=== PATIENT | female | born 1955 | race Caucasian/White ===

== ENCOUNTER 2019-05-10 12:45 | Outpatient (CLI) | payer BC, SELFPAY ==
--- NOTE | ~2019-05-10 | MR_ITS ---
EXAMINATION: MR lumbar spine [facility] EXAM DATE: 05/10/2019 13:38 INDICATION: Lumbar pain. Low back pain. TECHNIQUE: Multi-sequential, multiplanar MR images of the lumbar spine were obtained without contrast . Sagittal T1, T2, T2 fat saturation images. Axial T2 weighted images. There is no prior study for comparison. FINDINGS: There is 7 mm anterolisthesis L4 on L5 with mild to moderate loss of this disc height, but no spondylolysis suspected. The vertebral bodies are otherwise aligned. Mild disc disease at the othe r lumbar levels. The conus medullaris terminates at the T12-L1 level and has normal signal intensity and morphology. Paraspinal soft tissue is unremarkable. Level by level evaluation: T12-L1: Disc does not extend beyond the endplate margin. Facet arthropathy: Mild. Neural foraminal stenosis: No stenosis. Central canal stenosis: No stenosis. L1-L2: There is a minimal diffuse disc bulge. Facet arthropathy: Mild. Neural foraminal stenosis: No stenosis. Central canal stenosis: No stenosis. L2-L3: There is a mild diffuse disc bulge. Facet arthropathy: Mild. Neural foraminal stenosis: Mild to moderate left, mild right. Central canal stenosis: Mild. L3-L4: There is a mild to moderate diffuse disc bulge. Facet arthropathy: Mild to moderate. Neural foraminal stenosis: Mild to moderate bilateral. Central canal stenosis: Mild to moderate. L4-L5: There is a moderate diffuse disc bulge. Facet arthropathy: Severe . Ligamentum flavum enlargement. Neural foraminal stenosis: Moderate bilateral, left greater than right. Central canal stenosis: Severe. L5-S1: There is a mild diffuse disc bulge. Facet arthropathy: Mild to moderate right, mild left. Neural foraminal stenosis: Mild to moderate bilateral. Central canal stenosis: Mild to moderate. IMPRESSION: 1. L5-S1 grade 2 anterolisthesis, severe central canal stenosis. 2. Otherwise mild to moderate lumbar spondylosis as above. Reviewed, dictated and finalized at location A. YPERSON
== END 2019-05-10 12:46 | disposition home or self-care (01) ==
PROVIDERS: Visit Provider Family Medicine
DX: M25.78 Osteophyte, vertebrae (principal); M51.36 Other intervertebral disc degeneration, lumbar region; M47.896 Other spondylosis, lumbar region
CPT/HCPCS: 72148

== ENCOUNTER 2019-06-09 09:41 | Outpatient (CLI) | payer BC, SELFPAY ==
--- NOTE | ~2019-06-09 | DEXA_ITS ---
Bone Density Report Name: Erin Will Age: 63 Sex: Female Ethnicity: White Date of : 1955 Indication: postmenopausal; Referring Provider: Ashly Zaragoza Study: Bone densitometry was performed. Exam Date: June 09, 2019 Accession number: [id number] Bone Density: Region BMD T-score Z-score Classification AP Spine (L1-L4) 0.851 -1.8 -0.2 Osteopenia Femoral Neck (Left) 0.695 -1.4 0.0 Osteopenia Total Hip (Left) 0.891 -0.4 0.7 Normal Total Hip Bilateral Avg 0.873 -0.6 0.6 Normal Femoral Neck (Right) 0.672 -1.6 -0.2 Osteopenia Total Hip (Right) 0.855 -0.7 0.4 Normal World Health Organization criteria for BMD impression classify patients as: Normal (T-score at or above -1.0), Osteopenia (T-score between -1.0 and -2.5), or Osteoporosis (T-score at or below -2.5). 10-year Fracture Risk(1): Major Osteoporotic Fracture 8.3% Hip Fracture 0.8% Reported Risk Factors: [place] (), Neck BMD=0.672, BMI=31.5 (1) FRAX(R) Version 3.08. Fracture probability calculated for an untreated patient. Fracture probability may be lower if the patient has received treatment. Clinical Information Provided by Patient: Has used the following medications: Vitamin D Patient maximum height was 62 Menopause Age: 49 No regular weight bearing exercise Drinks caffeinated beverages Onset of menses at age 17 Number of children 3 Impression: The patient has low bone mass, based on the Total Spine T-score. The patient has an estimated ten-year risk of hip fracture of 0.8% and an estimated ten-year risk of major fracture of 8.3%, based on the WHO FRAX algorithm. Discussion: BONE DENSITY IS LOW AT ONE OR MORE SKELETAL SITES. This patient's lowest T-score is low at one or more skeletal sites. It meets the World Health Organization's (WHO) criteria for ?low bone mass? (T-score between -1.0 and -2.5). The patient's 10-year risk of fracture as calculated by FRAX is less than the threshold where pharmacological therapy is recommended by the National Osteoporosis Foundation (NOF). However, all treatment decisions require clinical judgment and consideration of individual patient factors, including patient preferences, comorbidities, previous drug use, risk factors not captured in the FRAX model (e.g., frailty, falls, vitamin D deficiency, increased bone turnover, interval significant decline in bone density) and possible under or overestimation of fracture risk by FRAX. The patient should follow a healthful lifestyle (good nutrition with adequate calcium and vitamin D, and appropriate weight-bearing exercise). Follow-Up: Consider repeating this study in 2 to 3 years to reassess this patient's status, or sooner if there is some new clinical indication. Reported by: [facility] on 06/09/2019 10:20:00 AM.
--- NOTE | ~2019-06-09 | MM_ITS ---
EXAMINATION: MM screening [facility] BI w angelina HISTORY: Screening mammogram TECHNIQUE: Craniocaudal and mediolateral oblique 3-D tomosynthesis images were obtained and synthetic 2-D images were generated. CAD analysis was submitted and interpreted. COMPARISON: 04/09/2016, 09/05/2014, 08/12/2013 BREAST PARENCHYMAL COMPOSITION: The breasts are heterogeneously dense, which may obscure small masses . FINDINGS: There is no evidence of suspicious mass, calcification, or architectural distortion to sugg est malignancy in either breast. There has been no suspicious interval change. IMPRESSION: 1. No mammographic evidence of malignancy. 2. Recommend routine screening mammography in one year. BI-RADS Category 1: Negative Reviewed, dictated and finalized at location A.
== END 2019-06-09 09:42 | disposition home or self-care (01) ==
PROVIDERS: Referring Provider Obstetrics & Gynecology; Visit Provider Family Medicine
DX: Z12.31 Encounter for screening mammogram for malignant neoplasm of breast (principal); Z78.0 Asymptomatic menopausal state; M85.88 Other specified disorders of bone density and structure, other site; M85.852 Other specified disorders of bone density and structure, left thigh; M85.851 Other specified disorders of bone density and structure, right thigh
CPT/HCPCS: 77063; 77067; 77080

== ENCOUNTER 2020-08-15 10:00 | Outpatient (CLI) | payer BC, SELFPAY ==
[2020-08-15 11:12] LABS: Thyroid Stimulating Hormone 0.017 uIU/mL (0.465-4.680)
[2020-08-15 11:27] LABS: Free T4 Free Thyroxine 1.24 ng/mL (0.78-2.19)
[2020-08-18 07:26] LABS: Triiodothyronine T3 Free 3.6 pg/mL (2.3-4.2)
== END 2020-08-15 10:01 | disposition home or self-care (01) ==
PROVIDERS: PCP Physician Assistant; Visit Provider Physician Assistant
DX: E05.90 Thyrotoxicosis, unspecified without thyrotoxic crisis or storm (principal); R79.89 Other specified abnormal findings of blood chemistry
CPT/HCPCS: 36415; 84439; 84443; 84481

== ENCOUNTER 2020-08-27 13:19 | Outpatient (CLI) | payer BC, SELFPAY ==
[2020-08-31 14:53] LABS: Thyroid Stimulating Immunoglob 180 % baseline (<140)
[2020-09-01 05:07] LABS: Thyroid Peroxidase Antibodies <1 IU/mL (<9)
[2020-09-01 20:45] LABS: Thyrotropin Receptor Antibody 6.44 IU/L (<=2.00)
[2020-09-03 04:44] LABS: Thyroxin Binding Globulin 25.4 mcg/mL (13.5-30.9)
== END 2020-08-27 13:20 | disposition home or self-care (01) ==
LOC: ANHLAB 13:20
PROVIDERS: PCP Physician Assistant; Visit Provider Physician Assistant
DX: R79.89 Other specified abnormal findings of blood chemistry (principal)
CPT/HCPCS: 36415; 83519; 84442; 84445; 86376

== ENCOUNTER → 2020-11-10 09:45 | Outpatient (CLI) | payer BC, SELFPAY ==
--- NOTE | ~2020-11-10 | MM_ITS ---
EXAMINATION: MM screening [facility] w angelina HISTORY: Screening mammogram TECHNIQUE: Craniocaudal and mediolateral oblique 3-D tomosynthesis images were obtained and synthetic 2-D images were generated. Bilateral rotated lateral cc views. CAD analysis was submitted and interp reted. COMPARISON: 06/09/2019, , 09/05/2014 bilateral digital screening mammogram examinations BREAST PARENCHYMAL COMPOSITION: The breasts are heterogeneously dense, which may obscure small masses . FINDINGS: There is no evidence of suspicious mass, calcification, or architectural distortion to sugg est malignancy in either breast. There has been no suspicious interval change. IMPRESSION: 1. No mammographic evidence of malignancy. 2. Recommend routine screening mammography in one year. BI-RADS Category 1: Negative Reviewed, dictated and finalized at location A.
== END ==
PROVIDERS: PCP Physician Assistant; Visit Provider Obstetrics & Gynecology
DX: Z12.31 Encounter for screening mammogram for malignant neoplasm of breast (principal)
CPT/HCPCS: 77063; 77067

== ENCOUNTER 2020-12-24 09:35 | Outpatient (CLI) | payer BC, SELFPAY ==
[2020-12-24 10:28] LABS: Basophils Percent Auto 0.8 % (0.2-1.2); Eosinophils Absolute Auto 0.1 K/mm3 (0-0.3); Eosinophils Percent Auto 2.3 % (0-4.4); Hematocrit 42.4 % (37.0-47.0); Hemoglobin 14.4 g/dL (12.0-15.0); Immature Granulocyte Absolute 0.01 K/mm3 (0.00-0.031); Immature Granulocyte Percent A 0.2 % (0-0.5); Lymphocytes Absolute Auto 1.87 K/mm3 (0.9-3.2); Lymphocytes Percent Auto 39.2 % (18.3-44.2); Mean Corpuscular Hemoglobin 30.3 pg (26-34); Mean Corpuscular Volume 89.3 fl (80-100); Mean Platelet Volume 9.3 fl (7.4-10.4); Monocytes Absolute Auto 0.6 K/mm3 (0.1-0.6); Monocytes Percent Auto 11.9 % (2.6-8.5); Neutrophils Absolute Auto 2.2 K/mm3 (1.3-6.7); Neutrophils Percent Auto 45.6 % (45.5-73.1); Platelet Count Result 277 k/mm3 (150-375); Red Blood Count 4.75 M/mm3 (4.2-5.4); Red Cell Distribution Width 12.8 % (11.5-14.5); White Blood Count 4.8 K/mm3 (4.5-10.0)
[2020-12-24 10:43] LABS: Alanine Aminotransferase 22 U/L (4-35); Albumin Level 4.4 g/dL (3.5-5.1); Alkaline Phosphatase 118 U/L (38-126); Anion Gap 7 mmol/L (8-16); Aspartate Amino Transferase 28 U/L (14-36); Bilirubin,Total 0.6 mg/dL (0.2-1.3); Blood Urea Nitrogen 13 mg/dL (7-17); Calcium 10.3 mg/dL (8.4-10.2); Carbon Dioxide 30 mmol/L (22-30); Chloride 104 mmol/L (98-107); Estimated Glomerular Filt Rate 56; Glucose 99 mg/dL (65-110); Potassium 3.9 mmol/L (3.4-5.0); Sodium 141 mmol/L (137-145)
[2020-12-24 11:11] LABS: Thyroid Stimulating Hormone < 0.015 uIU/mL (0.465-4.680)
[2020-12-24 11:18] LABS: Free T4 Free Thyroxine 1.45 ng/mL (0.78-2.19)
[2020-12-24 12:05] LABS: Folic Acid > 20.0 ng/mL (2.76->20)
[2020-12-27 04:39] LABS: Triiodothyronine T3 Free 3.6 pg/mL (2.3-4.2)
[2020-12-28 04:13] LABS: Thyroid Peroxidase Antibodies <1 IU/mL (<9)
[2021-01-01 14:28] LABS: Thyroid Stimulating Immunoglob <89 % baseline (<140)
== END 2020-12-24 09:36 | disposition home or self-care (01) ==
LOC: ANHLAB 09:37
PROVIDERS: PCP Physician Assistant; Visit Provider Internal Medicine Endocrinology, Diabetes & Metabolism
DX: R94.6 Abnormal results of thyroid function studies (principal)
CPT/HCPCS: 36415; 80053; 82607; 82746; 84439; 84443; 84445; 84481; 85025; 86376

== ENCOUNTER 2021-07-23 13:01 | Outpatient (CLI) | payer BC, SELFPAY ==
[2021-07-23 13:55] LABS: Alanine Aminotransferase 19 U/L (6-35); Alkaline Phosphatase 112 U/L (38-126); Anion Gap 5 mmol/L (8-16); Aspartate Amino Transferase 25 U/L (14-36); Bilirubin,Total 0.3 mg/dL (0.2-1.3); Blood Urea Nitrogen 19 mg/dL (7-17); Calcium 8.7 mg/dL (8.4-10.2); Carbon Dioxide 24 mmol/L (22-30); Chloride 105 mmol/L (98-107); Cholesterol 214 mg/dL (0-200); Estimated Glomerular Filt Rate 56; Glucose 97 mg/dL (65-110); HDL Direct 49 mg/dL; Potassium 3.8 mmol/L (3.4-5.0); Sodium 134 mmol/L (137-145); Triglycerides 341 mg/dL (<150)
[2021-07-23 14:02] LABS: Hemoglobin A1C 5.4 % (<5.7)
[2021-07-23 14:05] LABS: LDL Cholesterol Direct 109 mg/dL
[2021-07-23 14:23] LABS: Thyroid Stimulating Hormone < 0.015 uIU/mL (0.465-4.680)
[2021-07-23 14:38] LABS: Free T4 Free Thyroxine 1.52 ng/mL (0.78-2.19)
[2021-07-25 05:19] LABS: Triiodothyronine T3 Free 3.9 pg/mL (2.3-4.2)
[2021-07-25 13:42] LABS: Thyroid Stimulating Immunoglob 102 % baseline (<140)
[2021-07-25 21:30] LABS: Insulin Level Total 15.1 uIU/mL (<=19.6); Thyroid Peroxidase Antibodies <1 IU/mL (<9)
== END 2021-07-23 13:02 | disposition home or self-care (01) ==
LOC: ANHLAB 13:04
PROVIDERS: PCP Family Medicine; Visit Provider Internal Medicine Endocrinology, Diabetes & Metabolism
DX: R94.6 Abnormal results of thyroid function studies (principal); R73.01 Impaired fasting glucose
CPT/HCPCS: 36415; 80053; 80061; 83036; 83525; 84439; 84443; 84445; 84481; 86376

== ENCOUNTER → 2021-12-02 14:34 | Outpatient (CLI) | payer BC, SELFPAY ==
--- NOTE | ~2021-12-02 | MM_ITS ---
EXAMINATION: MM screening [facility] w angelina HISTORY: Screening mammogram TECHNIQUE: Craniocaudal and mediolateral oblique 3-D tomosynthesis images were obtained and synthetic 2-D images were generated. Bilateral rotated lateral CC views. CAD analysis was submitted and interp reted. COMPARISON: 11/2020, 06/09/2019, lateral screening mammogram examinations BREAST PARENCHYMAL COMPOSITION: The breasts are heterogeneously dense, which may obscure small masses . FINDINGS: There is no evidence of suspicious mass, calcification, or architectural distortion to sugg est malignancy in either breast. There has been no suspicious interval change. IMPRESSION: 1. No mammographic evidence of malignancy. 2. Recommend routine screening mammography in one year. BI-RADS Category 1: Negative Reviewed, dictated and finalized at location A.
== END ==
PROVIDERS: PCP Family Medicine; Visit Provider Obstetrics & Gynecology Gynecology
DX: Z12.31 Encounter for screening mammogram for malignant neoplasm of breast (principal)
CPT/HCPCS: 77063; 77067

== ENCOUNTER 2021-12-04 09:43 | Outpatient (CLI) | payer BC, SELFPAY ==
[2021-12-04 10:03] LABS: Hematocrit 43.9 % (37.0-47.0); Hemoglobin 14.3 g/dL (12.0-15.0); Mean Corpuscular HGB Conc 32.6 g/dl (32-36); Mean Corpuscular Volume 92.2 fl (80-100); Mean Platelet Volume 9.9 fl (7.4-10.4); Platelet Count Result 265 k/mm3 (150-375); Red Blood Count 4.76 M/mm3 (4.2-5.4); Red Cell Distribution Width 13.8 % (11.5-14.5); White Blood Count 6.4 K/mm3 (4.5-10.0)
[2021-12-04 10:15] LABS: Alanine Aminotransferase 24 U/L (6-35); Albumin Level 4.3 g/dL (3.5-5.1); Alkaline Phosphatase 120 U/L (38-126); Anion Gap 9 mmol/L (8-16); Aspartate Amino Transferase 26 U/L (14-36); Bilirubin,Total 0.4 mg/dL (0.2-1.3); Blood Urea Nitrogen 16 mg/dL (7-17); Calcium 9.9 mg/dL (8.4-10.2); Carbon Dioxide 27 mmol/L (22-30); Chloride 103 mmol/L (98-107); Cholesterol 232 mg/dL (0-200); Estimated Glomerular Filt Rate 56; Glucose 101 mg/dL (65-110); HDL Direct 44 mg/dL; Potassium 4.1 mmol/L (3.4-5.0); Sodium 139 mmol/L (137-145); Triglycerides 237 mg/dL (<150)
[2021-12-04 10:17] LABS: Appearance Urine Clear (Clear); Bilirubin Urine Negative (Negative); Blood Urine Negative (Negative); Color Urine Yellow (Yellow); Glucose Urine UA Negative (Negative); Ketones Urine Negative (Negative); Leukocyte Esterase Ur 1+ LEU/UL (NEGATIVE); Nitrate Urine Negative (Negative); Protein Urine Negative (Negative); Urobilinogen Urine 0.2 mg/dL (<2.0); pH Urine 6.5 (5.0-9.0)
[2021-12-04 10:19] LABS: Mucus Urine Rare /lpf; RBC Urine 0-2 /hpf (0-2); WBC Urine 0-3 /hpf (0-3)
[2021-12-04 10:26] LABS: LDL Cholesterol Direct 123 mg/dL
[2021-12-04 11:35] LABS: Add Urine Microscopic? YES
== END 2021-12-04 09:44 | disposition home or self-care (01) ==
LOC: ANHLAB 09:45
PROVIDERS: PCP Family Medicine; Visit Provider Family Medicine
DX: Z00.00 Encounter for general adult medical examination without abnormal findings (principal); E78.5 Hyperlipidemia, unspecified; I10 Essential (primary) hypertension; R53.83 Other fatigue
CPT/HCPCS: 36415; 80053; 80061; 81001; 85027

== ENCOUNTER → 2021-12-10 14:10 | Outpatient (CLI) | payer BC, SELFPAY ==
--- NOTE | ~2021-12-10 | DEXA_ITS ---
Bone Density Report Name: TASNEEM GALINDO Age: 66 Sex: Female Ethnicity: White Date of : 1955 Indication: osteopenia; postmenopausal Referring Provider: JOSE DURON Study: Bone densitometry was performed. Exam Date: December 10, 2021 Accession number: [id number] Bone Density: Region BMD T-score Z-score Classification AP Spine (L1, L2, L3) 0.931 -0.8 1.0 Normal Femoral Neck (Left) 0.677 -1.6 0.0 Osteopenia Total Hip (Left) 0.857 -0.7 0.5 Normal Femoral Neck (Right) 0.644 -1.8 -0.3 Osteopenia Total Hip (Right) 0.809 -1.1 0.2 Osteopenia Total Hip Mean 0.833 -0.9 0.4 Normal World Health Organization criteria for BMD impression classify patients as: Normal (T-score at or above -1.0), Osteopenia (T-score between -1.0 and -2.5), or Osteoporosis (T-score at or below -2.5). 10-year Fracture Risk(1): Major Osteoporotic Fracture 9.5% Hip Fracture 1.2% Reported Risk Factors: [place] (), Neck BMD=0.644, BMI=32.4 (1) FRAX(R) Version 3.08. Fracture probability calculated for an untreated patient. Fracture probability may be lower if the patient has received treatment. Previous Exams: Region Exam Age BMD T-score BMD Change BMD Change Date g/cm2 vs Baseline vs Previous AP Spine(L1, L2, L3) 12/10/2021 66 0.931 -0.8 -0.097* 0.108* 04/09/2016 60 0.823 -1.8 -0.205* -0.031* 09/23/2013 58 0.854 -1.5 -0.174* -0.079* 09/23/2011 56 0.934 -0.8 -0.095* -0.018 07/13/2010 54 0.952 -0.6 -0.077* -0.013 07/11/2009 53 0.965 -0.5 -0.064* -0.018 08/14/2006 51 0.983 -0.3 -0.046* -0.046* 05/05/2005 49 1.028 0.1 Total Hip(Left) 12/10/2021 66 0.857 -0.7 -0.043* 0.010 04/09/2016 60 0.847 -0.8 -0.053* -0.008 09/23/2013 58 0.855 -0.7 -0.044* -0.038* 09/23/2011 56 0.894 -0.4 -0.006 0.010 07/13/2010 54 0.884 -0.5 -0.016 0.046* 07/11/2009 53 0.838 -0.9 -0.061* -0.061* 08/14/2006 51 0.900 -0.3 Total Hip(Right) 12/10/2021 66 0.809 -1.1 -0.088* -0.047* 04/09/2016 60 0.857 -0.7 -0.041* 0.022 09/23/2013 58 0.835 -0.9 -0.063* -0.058* 09/23/2011 56 0.893 -0.4 -0.005 0.018 07/13/2010 54 0.874 -0.6 -0.023 0.055* 07/11/2009 53 0.819 -1.0 -0.079* -0.079* 08/14/2006 51 0.898 -0.4
== END ==
PROVIDERS: PCP Family Medicine; Visit Provider Physician Assistant
DX: Z78.0 Asymptomatic menopausal state (principal); M85.852 Other specified disorders of bone density and structure, left thigh; M85.851 Other specified disorders of bone density and structure, right thigh
CPT/HCPCS: 77080

== ENCOUNTER 2022-06-12 08:12 | Outpatient (CLI) | payer BC, SELFPAY ==
[2022-06-12 08:49] LABS: Alanine Aminotransferase 25 U/L (6-35); Albumin Level 4.1 g/dL (3.5-5.1); Alkaline Phosphatase 109 U/L (38-126); Anion Gap 4 mmol/L (8-16); Aspartate Amino Transferase 28 U/L (14-36); Bilirubin,Total 0.8 mg/dL (0.2-1.3); Blood Urea Nitrogen 20 mg/dL (7-17); Calcium 9.3 mg/dL (8.4-10.2); Carbon Dioxide 31 mmol/L (22-30); Chloride 105 mmol/L (98-107); Cholesterol 225 mg/dL (0-200); Estimated Glomerular Filt Rate > 60; Glucose 85 mg/dL (65-110); HDL Direct 48 mg/dL; Potassium 3.9 mmol/L (3.4-5.0); Sodium 140 mmol/L (137-145); Triglycerides 161 mg/dL (<150)
[2022-06-12 09:00] LABS: LDL Cholesterol Direct 123 mg/dL
[2022-06-12 09:19] LABS: Free T4 Free Thyroxine 1.47 ng/mL (0.78-2.19)
[2022-06-12 09:20] LABS: Thyroid Stimulating Hormone < 0.015 uIU/mL (0.465-4.680)
== END 2022-06-12 08:13 | disposition home or self-care (01) ==
LOC: ANHLAB 08:14
PROVIDERS: PCP Family Medicine; Visit Provider Family Medicine
DX: R79.89 Other specified abnormal findings of blood chemistry (principal); E78.1 Pure hyperglyceridemia; I10 Essential (primary) hypertension
CPT/HCPCS: 36415; 80053; 80061; 84439; 84443

== ENCOUNTER 2022-07-09 15:09 | Outpatient (CLI) | payer BC, SELFPAY ==
--- NOTE | ~2022-07-09 | US_ITS ---
EXAMINATION: US thyroid DATE: 07/09/2022 15:44 INDICATION: Thyrotoxicosis, unspecified without thyrotoxic crisis. TECHNIQUE: Multiple ultrasound images of the thyroid were obtained. COMPARISON: None. FINDINGS: The right thyroid lobe measures 4.5 x 1.7 x 2.0 cm. The left thyroid lobe measures 4.7 x 2.1 x 2.0 c m. In the right thyroid lobe, there is a 12 mm predominantly solid, hypoechoic, wider than tall nodu le with ill-defined margin and punctate echogenic foci (TI-RADS TR5). In the right thyroid lobe, ther e is a 14 mm predominantly solid, hypoechoic, wider than tall nodule with smooth margin and punctate echogenic foci (TR5). In the right thyroid lobe, there is a 13 mm mixed cystic and solid, hypoechoic, wider than tall nodule with smooth margin and punctate echogenic foci (TR4). In the left thyroid lob e, there is a 2.1 cm predominantly cystic nodule (TR1). In the left thyroid lobe, there is a 12 mm pr edominantly cystic nodule (TR1). There are multiple subcentimeter nodules in the thyroid. IMPRESSION: 1. Multinodular goiter. Consider ultrasound-guided fine-needle aspiration of 2 nodules. Reviewed, dictated and finalized at location A.
== END 2022-07-09 15:10 | disposition home or self-care (01) ==
PROVIDERS: PCP Family Medicine; Visit Provider Family Medicine
DX: E05.90 Thyrotoxicosis, unspecified without thyrotoxic crisis or storm (principal); E04.2 Nontoxic multinodular goiter
CPT/HCPCS: 76536

== ENCOUNTER 2022-07-28 09:49 | Outpatient (CLI) | payer BC, SELFPAY ==
--- NOTE | ~2022-07-28 | US_ITS ---
EXAMINATION: 1. US FNA w image guidance 2. US FNA additional DATE: 07/28/2022 11:10 INDICATION: Nontoxic multinodular goiter. TECHNIQUE: The procedure and its benefits and risks were discussed with the patient. Risks specifically discusse d included bleeding. The patient verbalized understanding of the risks and agreed to proceed. The nec k was prepped and draped in the usual sterile manner. 1% lidocaine was used for local anesthesia. 6 passes were made with a 25G needle into the lesion in medial right thyroid lobe under ultrasound paige dance. 6 passes were made with a 25-gauge needle into the lesion in lateral right thyroid lobe lateral segme nt is . There were no immediate complications. FINDINGS: Grayscale ultrasound images demonstrate needles advanced into a 12 mm nodule in medial right thyroid lobe for biopsy. Grayscale ultrasound images demonstrate needles advanced into a 14 mm nodule in late ral right thyroid lobe for biopsy. IMPRESSION: 1. Ultrasound-guided fine needle aspiration of a nodule in medial right thyroid lobe. 2. Ultrasound-guided fine needle aspiration of a nodule in lateral right thyroid lobe. Reviewed, dictated and finalized at location A. IMPRESSION: 1. Ultrasound-guided fine needle aspiration of a nodule in medial right thyroi d lobe. 2. Ultrasound-guided fine needle aspiration of a nodule in lateral right thyroi d lobe.
== END 2022-07-28 09:50 | disposition home or self-care (01) ==
PROVIDERS: PCP Family Medicine; Visit Provider Otolaryngology
DX: E04.2 Nontoxic multinodular goiter (principal)
CPT/HCPCS: 10005; 10006; 88173; 88305

== ENCOUNTER 2023-01-13 07:05 | Outpatient (CLI) | payer BC, SELFPAY ==
[2023-01-13 09:23] LABS: Alanine Aminotransferase 25 U/L (6-35); Alkaline Phosphatase 158 U/L (38-126); Anion Gap 6 mmol/L (8-16); Aspartate Amino Transferase 24 U/L (14-36); Bilirubin,Total 0.5 mg/dL (0.2-1.3); Blood Urea Nitrogen 21 mg/dL (7-17); Calcium 9.8 mg/dL (8.4-10.2); Carbon Dioxide 26 mmol/L (22-30); Chloride 105 mmol/L (98-107); Cholesterol 186 mg/dL (0-200); Estimated Glomerular Filt Rate > 60; Glucose 76 mg/dL (65-110); HDL Direct 65 mg/dL; Potassium 3.3 mmol/L (3.4-5.0); Sodium 137 mmol/L (137-145); Triglycerides 119 mg/dL (<150)
[2023-01-13 09:34] LABS: LDL Cholesterol Direct 90 mg/dL
[2023-01-13 09:48] LABS: Thyroid Stimulating Hormone < 0.015 uIU/mL (0.465-4.680)
[2023-01-13 10:01] LABS: Free T4 Free Thyroxine 2.07 ng/mL (0.78-2.19)
[2023-01-13 10:46] LABS: Cortisol Random 2.68 ug/dL
[2023-01-13 11:08] LABS: Hemoglobin A1C 5.5 % (<5.7)
[2023-01-15 14:38] LABS: Thyroid Stimulating Immunoglob 235 % baseline (<140)
[2023-01-16 04:58] LABS: Triiodothyronine T3 Free 3.7 pg/mL (2.3-4.2)
[2023-01-17 04:14] LABS: Thyroid Peroxidase Antibodies <1 IU/mL (<9)
== END 2023-01-13 07:06 | disposition home or self-care (01) ==
PROVIDERS: PCP Family Medicine; Visit Provider Internal Medicine Endocrinology, Diabetes & Metabolism
DX: E78.1 Pure hyperglyceridemia (principal); E06.3 Autoimmune thyroiditis; R73.01 Impaired fasting glucose
CPT/HCPCS: 36415; 80053; 80061; 82024; 82533; 83036; 83525; 84439; 84443; 84445; 84481; 86376

== ENCOUNTER 2023-05-05 15:14 | Outpatient (CLI) | payer BC, SELFPAY ==
[2023-05-05 15:48] LABS: Appearance Urine Clear (Clear); Bacteria Urine Rare /hpf; Bilirubin Urine 1+ (Negative); Blood Urine Negative (Negative); Color Urine Dark Yellow (Yellow); Glucose Urine UA Negative (Negative); Ketones Urine Trace mg/dL (Negative); Leukocyte Esterase Ur 2+ LEU/UL (NEGATIVE); Nitrate Urine Negative (Negative); Protein Urine Negative (Negative); RBC Urine 0-2 /hpf (0-2); Specific Grav Ur 1.021 (1.001-1.035); Squamous Epithelial Cell Urine Few /hpf (Few); WBC Urine 21-50 /hpf (0-3); pH Urine 6.5 (5.0-9.0)
[2023-05-05 15:48] LABS: Hematocrit 42.1 % (37.0-47.0); Hemoglobin 13.6 g/dL (12.0-15.0); Mean Corpuscular HGB Conc 32.3 g/dl (32-36); Mean Corpuscular Hemoglobin 30.1 pg (26-34); Mean Corpuscular Volume 93.1 fl (80-100); Mean Platelet Volume 9.7 fl (7.4-10.4); Platelet Count Result 314 k/mm3 (150-375); Red Blood Count 4.52 M/mm3 (4.2-5.4); Red Cell Distribution Width 13.4 % (11.5-14.5); White Blood Count 6.9 K/mm3 (4.5-10.0)
[2023-05-05 15:50] LABS: Add Urine Microscopic? YES
[2023-05-05 16:02] LABS: Alanine Aminotransferase 25 U/L (6-35); Albumin Level 3.9 g/dL (3.5-5.1); Alkaline Phosphatase 105 U/L (38-126); Anion Gap 2 mmol/L (8-16); Aspartate Amino Transferase 29 U/L (14-36); Bilirubin,Total 0.5 mg/dL (0.2-1.3); Blood Urea Nitrogen 19 mg/dL (7-17); Calcium 9.7 mg/dL (8.4-10.2); Carbon Dioxide 33 mmol/L (22-30); Chloride 103 mmol/L (98-107); Cholesterol 215 mg/dL (0-200); Estimated Glomerular Filt Rate > 60; Glucose 149 mg/dL (65-110); HDL Direct 49 mg/dL; Potassium 3.3 mmol/L (3.4-5.0); Sodium 138 mmol/L (137-145); Triglycerides 328 mg/dL (<150)
[2023-05-05 16:13] LABS: LDL Cholesterol Direct 112 mg/dL
[2023-05-05 16:30] LABS: Thyroid Stimulating Hormone < 0.015 uIU/mL (0.465-4.680)
== END 2023-05-05 15:15 | disposition home or self-care (01) ==
LOC: ANHLAB 15:15
PROVIDERS: PCP Family Medicine; Visit Provider Family Medicine
DX: E78.1 Pure hyperglyceridemia (principal); I10 Essential (primary) hypertension; R53.83 Other fatigue; Z00.00 Encounter for general adult medical examination without abnormal findings
CPT/HCPCS: 36415; 80053; 80061; 81001; 84443; 85027

== ENCOUNTER 2023-05-18 11:03 | Outpatient (CLI) | payer BC, SELFPAY ==
--- NOTE | ~2023-05-18 | XR_ITS ---
PA, oblique, and lateral views of the left thumb CLINICAL HISTORY: Pain FINDINGS: No acute fracture or dislocation seen. There is minimal degenerative change of the first CM C joint. Soft tissues are unremarkable. IMPRESSION: Minimal degenerative change of the first CMC joint. Reviewed, dictated and finalized at location .
--- NOTE | ~2023-05-18 | XR_ITS ---
PA, oblique, and lateral views of the right thumb Clinical history: Pain FINDINGS: No acute fracture or dislocation seen. There is minimal degenerative change of the first CM C joint. Soft tissues are unremarkable. IMPRESSION: No acute abnormality. Minimal degenerative change of the first CMC joint. Reviewed, dictated and finalized at location .
== END 2023-05-18 11:04 ==
PROVIDERS: PCP Family Medicine; Visit Provider Family Medicine
DX: M79.644 Pain in right finger(s) (principal); M79.645 Pain in left finger(s)
CPT/HCPCS: 73140

== ENCOUNTER 2023-05-21 14:46 | Outpatient (CLI) | payer BC, SELFPAY ==
--- NOTE | ~2023-05-21 | MM_ITS ---
EXAMINATION: MM screening [facility] w angelina HISTORY: Screening mammogram TECHNIQUE: Craniocaudal and mediolateral oblique 3-D tomosynthesis images were obtained and synthetic 2-D images were generated. CAD analysis was submitted and interpreted. COMPARISON: 12/02/2021, 11/2020 bilateral screening mammogram examinations BREAST PARENCHYMAL COMPOSITION: The breasts are heterogeneously dense, which may obscure small masses . FINDINGS: There is no evidence of suspicious mass, calcification, or architectural distortion to sugg est malignancy in either breast. There has been no suspicious interval change. IMPRESSION: 1. No mammographic evidence of malignancy. 2. Recommend routine screening mammography in one year. BI-RADS Category 1: Negative Reviewed, dictated and finalized at location A.
== END 2023-05-21 14:47 ==
LOC: MICIMG 14:47
PROVIDERS: PCP Obstetrics & Gynecology Gynecology; Visit Provider Family Medicine
DX: Z12.31 Encounter for screening mammogram for malignant neoplasm of breast (principal)
CPT/HCPCS: 77063; 77067

== ENCOUNTER 2023-12-08 07:56 | Outpatient (CLI) | payer BC, SELFPAY ==
[2023-12-08 08:33] LABS: Hematocrit 41.8 % (37.0-47.0); Hemoglobin 13.7 g/dL (12.0-15.0); Mean Corpuscular HGB Conc 32.8 g/dl (32-36); Mean Corpuscular Volume 91.5 fl (80-100); Mean Platelet Volume 10.1 fl (7.4-10.4); Platelet Count Result 248 k/mm3 (150-375); Red Blood Count 4.57 M/mm3 (4.2-5.4); Red Cell Distribution Width 13.2 % (11.5-14.5); White Blood Count 5.7 K/mm3 (4.5-10.0)
[2023-12-08 08:38] LABS: Alanine Aminotransferase 25 U/L (6-35); Alkaline Phosphatase 111 U/L (38-126); Anion Gap 6 mmol/L (4-12); Aspartate Amino Transferase 28 U/L (14-36); Bilirubin,Total 0.6 mg/dL (0.2-1.3); Blood Urea Nitrogen 17 mg/dL (7-17); Calcium 9.5 mg/dL (8.4-10.2); Carbon Dioxide 29 mmol/L (22-30); Chloride 104 mmol/L (98-107); Estimated Glomerular Filt Rate > 60; Glucose 92 mg/dL (65-110); Potassium 3.4 mmol/L (3.4-5.0); Sodium 139 mmol/L (137-145)
[2023-12-08 09:08] LABS: Total Triiodothyronine (T3) 1.49 NG/ML (0.97-1.69)
[2023-12-08 09:38] LABS: Free T4 Free Thyroxine 1.33 ng/mL (0.78-2.19)
[2023-12-14 19:03] LABS: Thyroid Stimulating Immunoglob 115 % baseline (<140)
== END 2023-12-08 07:57 | disposition home or self-care (01) ==
PROVIDERS: PCP Family Medicine; Visit Provider Internal Medicine
DX: E04.2 Nontoxic multinodular goiter (principal); E05.90 Thyrotoxicosis, unspecified without thyrotoxic crisis or storm
CPT/HCPCS: 36415; 80053; 83519; 84439; 84443; 84445; 84480; 85027; 86376

== ENCOUNTER 2023-12-15 10:14 | Outpatient (CLI) | payer BC, SELFPAY ==
--- NOTE | ~2023-12-15 | US_ITS ---
EXAMINATION: US thyroid DATE: 12/15/2023 10:55 INDICATION: Thyrotoxicosis, unspecified without thyrotoxic crisis. TECHNIQUE: Multiple ultrasound images of the thyroid were obtained. COMPARISON: Ultrasound 07/09/22 FINDINGS: The right thyroid lobe measures 4.2 x 1.9 x 1.9 cm. The left thyroid lobe measures 4.6 x 1.8 x 1.9 c m. There are multiple nodules in the thyroid of similar ultrasound appearance. Biopsy of two nodules on 07/28/22 was benign. In the right thyroid lobe, there is a 1.3 cm mixed cystic and solid, hypoechoi c, wider than tall nodule with smooth margin without echogenic foci (TI-RADS TR3). In the right thyro id lobe, there is a 1.4 cm mixed cystic and solid, hypoechoic, wider than tall nodule with smooth mar gin without echogenic foci (TR3). In the left thyroid lobe, there is a 1.9 cm mixed cystic and solid, hypoechoic, solid nodule with smooth margin without echogenic foci (TR3). IMPRESSION: 1. Multinodular goiter. Given the history of 2 benign biopsies, follow-up may not be needed. Reviewed, dictated and finalized at location A. IMPRESSION: 1. Multinodular goiter. Given the history of 2 benign biopsies, follow-up may n ot be needed.
== END 2023-12-15 10:15 | disposition home or self-care (01) ==
PROVIDERS: PCP Family Medicine; Visit Provider Internal Medicine
DX: E05.90 Thyrotoxicosis, unspecified without thyrotoxic crisis or storm (principal); E04.2 Nontoxic multinodular goiter
CPT/HCPCS: 76536

== ENCOUNTER 2023-12-24 07:03 | Outpatient (CLI) | payer BC, SELFPAY ==
--- NOTE | ~2023-12-24 | NM_ITS ---
EXAMINATION: NM thyroid scan w uptake DATE: 12/25/2023 08:19 INDICATION: Thyrotoxicosis. Assess for toxic thyroid nodule COMPARISON: Ultrasound dated 12/15/2023 TECHNIQUE: 494 microcuries [id number] was administered orally in capsule form. Scintigraphic images of th e thyroid gland were obtained at 24 hours. Thyroid uptake was calculated by the technologist. FINDINGS: The thyroid uptake is 21.6% (normal 10-30%), with the right lobe measuring 12.1% uptake and the left 9.9%. There is no focal area of decreased or increased activity to suggest hypofunctioning or hyperfu nctioning nodule. IMPRESSION: 1. Normal thyroid scintigraphy and 24-hour iodine uptake. Reviewed, dictated and finalized at location A.
== END 2023-12-24 07:04 | disposition home or self-care (01) ==
LOC: ANHIMG 07:06
PROVIDERS: PCP Family Medicine; Visit Provider Internal Medicine
DX: E05.90 Thyrotoxicosis, unspecified without thyrotoxic crisis or storm (principal); M85.80 Other specified disorders of bone density and structure, unspecified site; E04.2 Nontoxic multinodular goiter
CPT/HCPCS: 78014; A9516

== ENCOUNTER 2024-02-11 14:59 | Outpatient (CLI) | payer BC, SELFPAY ==
[2024-02-11 16:04] LABS: Thyroid Stimulating Hormone 0.265 uIU/mL (0.465-4.680); Total Triiodothyronine (T3) 1.17 NG/ML (0.97-1.69)
[2024-02-11 16:05] LABS: Free T4 Free Thyroxine 1.02 ng/dL (0.78-2.19)
== END 2024-02-11 15:00 | disposition home or self-care (01) ==
LOC: ANHLAB 15:00
PROVIDERS: PCP Family Medicine; Visit Provider Internal Medicine
DX: E05.90 Thyrotoxicosis, unspecified without thyrotoxic crisis or storm (principal); E04.2 Nontoxic multinodular goiter; E78.1 Pure hyperglyceridemia; M85.80 Other specified disorders of bone density and structure, unspecified site
CPT/HCPCS: 36415; 84439; 84443; 84480

== ENCOUNTER 2024-05-26 07:43 | Outpatient (CLI) | payer BC, SELFPAY ==
--- OUTSIDE RECORDS SUMMARY | 2024-05-26 07:47 | XMS_ITS | Clinical Summary ---
Author Organization [facility] Address [address] [place] [id number] Care Team Providers Care Cycle Counter Name Role Phone Jolene Emerson Primary Care Provider [phone] Allergies Active Allergy Reactions Criticality Noted Date Comments Codeine Unknown 11/18/2016 Nausea and vomiting Medications hydroCHLOROthia zide 25 MG tablet Take 25 mg by mouth daily. 07/08/2019 Active valsartan 320 MG tablet Take 320 mg by mouth daily. 08/10/2019 Active zolpidem 10 MG tablet Take 10 mg by mouth nightly at bedtime. 09/08/2019 Active multi vitamin/mineral s tablet Take 1 tablet by mouth daily. Active Active Problems Problem Noted Date Diagnosed Date Essential hypertension 09/29/2019 Other insomnia 09/29/2019 Immunizations Name Administration Dates Next Due Tdap (Historical Only-select from magnify glass) 09/29/2019 Family History Medical History Relation Comments No Known Problems Father Hypertension Mother Relation Status Comments Father Mother Alive Social History Tobacco Use Types Packs/Day Years Used Date Smoking Tobacco: Former Smokeless Tobacco: Never Alcohol Use Standard Drinks/Week Comments Never 0 (1 standard drink = 0.6 oz pur e alcohol) AUDIT-C Answer Date Recorded Frequency of Alcohol Consumption Never 09/29/2019 Average Number of Drinks Not on file 020 Frequency of Binge Drinking Not on file 09/07 Comments Unknown Sex and Gender Information Value Date Recorded Sex Assigned at Not on file Legal Sex Female 10:04 AM CDT Gender Identity Not on file Sexual Orientation Not on file Last Filed Vital Signs Vital Sign Reading Time Taken Comments Blood Pressure 110/77 09/29/2019 2:28 PM CDT Pulse 88 09/29/2019 2:28 PM CDT Temperature 36.9 C (98.4 F) 09/29/2019 2:28 PM CDT Respiratory Rate 18 09/29/2019 2:28 PM CDT Oxygen Saturation 98% 09/29/2019 2:28 PM CDT Inhaled Oxygen Concentration - - Weight 75.3 kg (166 lb) 09/29/2019 2:28 PM CDT Height 157.5 cm (5' 2 ) 09/29/2019 2:28 PM CDT Body Mass Index 30.36 09/29/2019 2:28 PM CDT Plan of Treatment Health Maintenance Due Date Last Done Comments Hepatitis C 1974 Zoster Vaccines (1 of 2) 2006 Mammogram Screening 06/08/2021 06/09/2019 Pneumococcal Vaccine: 65+ Ye ars (1 of 1 - PCV) 2021 COVID-19 Vaccine (1 - 2023-2 5 season) 2023 Influenza Adult (#1) 2023 Colorectal Cancer Screening Colonoscopy (10 Years) 10/27/2027 10/26/2017 DTaP, Tdap and Td Vaccines ( 2 - Td or Tdap) 09/28/2029 09/29/2019 RSV Immunization or 60+ Years (1 - 1-dose 75+ series) 07/16/2031 Dexa Scan (General) Completed 06/09/2019 Meningococcal B Vaccine Aged Out No l onger eligible based on patient's age to complete this topic Meningococcal Vaccine Aged Out No yoel nathan eligible based on patient's age to complete this topic RSV Immunizations Under 20 Months Aged Out No longer eligible based on patient's age to complete this topic Procedures Procedure Name Priority Date/Time Associated Diagnosis Comments BONE DENSITY GENERIC (SCAN ORDER) 06/09/2019 MAMMOGRAM GENERIC (SCAN ORDER) 06/09/2019 COLONOSCOPY GENERIC (SCAN ORDER) Routine 10/26/2017 from Last 3 Months or Most Recently Relevant to Health Maintenance Results * BONE DENSITY GENERIC (06/09/2019) Anatomical Region Laterality Modality Other 06/09/2019 Narrative 06/09/2019 Ordered by an unspecified provider. us Documents Scanned SCANNING Final Result * MAMMOGRAM GENERIC (06/09/2019) Anatomical Region Laterality Modality Other 06/09/2019 Narrative 06/09/2019 Ordered by an unspecified provider. us Documents Scanned SCANNING Final Result * COLONOSCOPY (10/26/2017) us Documents Scanned SCANNING Final Result Performing Organization Address City/State/[facility] Co de Phone Number [facility] from Last 3 Months or Most Recently Relevant to Health Maintenance Insurance [facility] Care Teams Cycle Counter Relationship Specialty Start [place] [address] [place] [address] PCP - General PHYSICIAN TRANSPLANT RN 09/08/19
--- OUTSIDE RECORDS SUMMARY | 2024-05-26 07:47 | XMS_ITS | Clinical Summary ---
Author Organization [employer] [facility] Address [address] [place] [address] Care Team Providers Care Director Of Slot Operations Name Role Phone Ashly Zaragoza MD Primary Care Provi lyla Allergies Active Allergy Reactions Criticality Noted Date Comments Codeine Unknown 11/18/2016 Nausea and vomiting Medications valsartan (DIOVAN) 320 mg tablet valsartan 320 mg tablet Active zolpidem (AMBIEN) 10 mg tablet zolpidem 10 mg tablet Active ascorbic acid (VITAMIN C ORAL) Take 600 mg by mouth daily. Active multivit-mins no.63/iron/foli c (M-VIT ORAL) Take 1 Tablet by mouth daily. Active sulfamethoxazol e-trimethoprim (BACTRIM DS) 800-160 mg tablet Take 1 Tablet by mouth 2 times daily. Active diazePAM (VALIUM) 5 mg tabletIndicatio ns:Spondylolist hesis at L4-L5 level Take 1 Tablet (5 mg) by mouth every 6 hours as needed for Spasm. 42 Tablet 0 Active oxyCODONE (ROXICODONE) 5 mg tabletIndicatio ns:Spondylolist hesis at L4-L5 level Take 1 Tablet (5 mg) by mouth every 4 hours as needed for Pain, Severe. Max Daily Amount: 30 mg 42 Tablet 0 Active ondansetron (ZOFRAN ODT) 4 mg Tablet, Rapid Dissolve Take 1 Tablet (4 mg) by mouth every 6 hours as needed for Nausea/Emesis. Dissolve tablet on top of tongue, then swallow with saliva. 42 Tablet 0 Active etodolac (LODINE) 500 mg tablet Take 1 Tablet (500 mg) by mouth 2 times daily. 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 05/23/2019 Light cigarette smoker (1-9 cigarettes per day) 05/23/2019 Encounters Date Type Department Care Team Description 05/14/2024 External Device Data [facility] ABSTRACTION Provider, Abstract 05/13/2024 External Device Data [facility] ABSTRACTION Provider, Abstract 05/11/2024 External Device Data [facility] ABSTRACTION Provider, Abstract 04/27/2024 External Device Data [facility] ABSTRACTION Provider, Abstract 04/27/2024 External Device Data [facility] ABSTRACTION Provider, Abstract 03/30/2024 External Device Data [facility] ABSTRACTION Provider, Abstract 03/30/2024 External Device Data [facility] ABSTRACTION Provider, Abstract from Last 3 Months Family History Medical History Relation Name Comments No Known Problems Brother x 2 No Known Problems Father No Known Problems Mother Relation Name Status Comments Brother x 2 Alive Father Mother Alive Social History Tobacco Use Types Packs/Day Years Used Date Smoking Tobacco: Former Cigarettes Q uit: 2020 Smokeless Tobacco: Never Alcohol Use Standard Drinks/Week Comments Not Currently 0 (1 standard drink = 0.6 oz pur e alcohol) Comments No Sex and Gender Information Value Date Recorded Sex Assigned at Not on file 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 Gender Identity Not on file Sexual Orientation Not on file Occupation Industry Job Start Date Job End Date Not on file Not on file Not on file Not on file Last Filed Vital Signs Vital Sign Reading Time Taken Comments Blood Pressure 72/54 10/08/2019 12:21 PM CDT Pulse 66 10/08/2019 12:21 PM CDT Temperature 36.8 C (98.2 F) 10/08/2019 12:21 PM CDT Respiratory Rate 16 10/08/2019 12:21 PM CDT Oxygen Saturation 96% 10/08/2019 12:21 PM CDT Inhaled Oxygen Concentration - - Weight 74.8 kg (165 lb) 10/05/2019 9:50 AM CDT Height 157.5 cm (5' 2 ) 10/05/2019 9:50 AM CDT Body Mass Index 30.18 10/05/2019 9:50 AM CDT Plan of Treatment Health Maintenance Due Date Last Done Comments Pre-Diabetes and Diabetes Screening 1955 BREAST CANCER SCREENING 1996 FIT-DNA Q 3 years 2001 FIT/FOBT Q 1 year 2001 Flex Sig/CT Colonography Q 5 years 2001 PNEUMOCOCCAL VACCINE 50+ YEA RS (1 of 1 - PCV) 2006 ZOSTER VACCINE (1 of 2) 2006 INFLUENZA VACCINE (#1) 2023 COLORECTAL SCREENING 10/27/2027 10/26/2017, 10/24/19 17 Colorectal Cancer Screening 10/27/2027 DTAP/TDAP/TD VACCINES (2 - Td or Tdap) 09/28/2029 RSV VACCINE (60+ or ) (1 - 1-dose 75+ series) 07/16/2031 OSTEOPOROSIS SCREENING Completed 06/09/2019 Medical Devices Implanted Type Area Histology Technician Device Identifier Shelf Expiration Date Model / Serial / Lot Hemostatic Surgiflo 8ml W/Thrombin 2994 - [id number] Implanted:Qty: 1 on 10/05/2019 by Manuel Muñoz MD at [facility] Hemostatic N/A: Back [employer] 07/06/2020 2994 / / [id number] Hemostatic Surgiflo 8ml W/Thrombin 2994 - [id number] Implanted:Qty: 2 on 10/05/2019 by Manuel Muñoz MD at [facility] Hemostatic N/A: Back [employer] 08/06/2020 2994 / / [id number] Hemostatic Surgifoam Sz12-7 1971 - [id number] Implanted:Qty: 1 on 10/05/2019 by Manuel Muñoz MD at [facility] Hemostatic N/A: Back J[employer]- [employer] 02/10/20231971 / / [id number] Juancarlos Xpdm Crv W/Line 40mm 1797-71-040 - Sload Number [id number] Implanted:Qty: 2 on 10/05/2019 by Manuel Muñoz MD at [facility] Juancarlos N/A: Back [employer]- [employer] 1797-0 40 / LOAD NUMBER 411 / STERILIZE D ON 0 Description:all Depuy spinal hardware was processed on requisition [id number]. Setscrew Inner 17909-07-000 - Sload Number [id number] Implanted:Qty: 4 on 10/05/2019 by Manuel Muñoz MD at [facility] Screw N/A: Back [employer]- [employer] 00 / LOAD NUMBER 411 / STERILIZE D ON 0 Screw Exp Poly 7x45mm 745 - Sload Number [id number] Implanted:Qty: 3 on 10/05/2019 by Manuel Muñoz MD at [facility] Screw N/A: Back [employer]- [employer] 1797-02-12 45 / LOAD NUMBER 411 / STERILIZE D ON 0 Screw Exp Poly 6x45mm 1797-02-645 - Sload Number [id number] Implanted:Qty: 1 on 10/05/2019 by Manuel Muñoz MD at [facility] Screw N/A: Back [employer] 1797-02-11 45 / LOAD NUMBER 411 / STERILIZE D ON 0 Allograft Vivigen Matrix 10ml Bl-1500-003 - [id number] Implanted:Qty: 1 on 10/05/2019 by Manuel Muñoz MD at [facility] Tissue N/A: Back [employer] 09/19/2020 BL-1500-0 [id number] / Allograft Vivigen Matrix 10ml Bl-1500-003 - [id number] Implanted:Qty: 1 on 10/05/2019 by Manuel Muñoz MD at [facility] Tissue N/A: Back [employer] 09/14/2020 BL-1500-0 [id number] / [place] [address] BS BLUE ACCESS/TRUE BLUE PPO Advance Directives For more information, please contact: [phone] * Full Code (Latest Code Status on File) Date Activated Date Inactivated Comments 10/05/2019 6:54 PM 10/08/2019 5:49 PM * Full Code Date Activated Date Inactivated Comments 10/05/2019 11:42 AM 10/05/2019 6:54 PM * Full Code Date Activated Date Inactivated Comments 10/05/2019 10:03 AM 10/05/2019 11:42 AM * Full Code Date Activated Date Inactivated Comments 08/29/2019 2:44 PM 08/29/2019 8:03 PM * Full Code Date Activated Date Inactivated Comments 08/29/2019 12:26 PM 08/29/2019 2:44 PM Care Teams Director Of Slot Operations Relationship Specialty Start Date End Date Ashly Zaragoza MD [address] [place] [address] PCP - General Family Practice 10/04/19
--- OUTSIDE RECORDS SUMMARY | 2024-05-26 07:47 | XMS_ITS | Clinical Summary ---
[facility] Address [address] [place] [address] Care Team Providers Care Wire Brush Operator Name Role Phone Chapincito Cuevas MD Primary Care Provider [phone]- [phone] Allergies Active Allergy Reactions Criticality Noted Date Comments Codeine Unknown,Nausea only Low 11/18/2016 Nausea and vomiting Nausea and vomiting Medications hydroCHLOROthia zide (HYDRODIURIL) 25 mg tablet Take 25 mg by mouth daily 03/28/2020 Active ibuprofen (ADVIL,MOTRIN) 800 mg tablet TAKE 1 TABLET BY MOUTH EVERY DAY NEEDED FOR PAIN 05/31/2020 Active valsartan (DIOVAN) 320 mg tablet Take 320 mg by mouth daily 04/30/2020 Active zolpidem (AMBIEN) 10 mg tablet Take 10 mg by mouth nightly at bedtime. 06/21/2020 Active Active Problems Problem Noted Date Diagnosed Date Injury of extensor tendon of left hand Overview (08/20/2020): Added automatically from request for surgery [id number] Surgical History Surgery Date Site/Laterality Comments BACK SURGERY SPINE SURGERY L4-5 Medical History Medical History Date Comments Hypertension Family History Medical History Relation Name Comments No Known Problems Father No Known Problems Mother No Known Problems Other Relation Name Status Comments Father Mother Other Social History Tobacco Use Types Packs/Day Years Used Date Smoking Tobacco: Never Smokeless Tobacco: Never AUDIT-C Answer Date Recorded Q1: How often do you have a drink containing alc ohol? Never 08/23/2020 Average Number of Drinks Not on file 021 Q3: How often do you have si x or more drinks on one occasion? 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 Gender Identity Not on file Sexual Orientation Not on file Obstetrics History Last Filed Vital Signs Vital Sign Reading Time Taken Comments Blood Pressure 125/83 08/23/2020 12:22 PM CDT Pulse 73 08/23/2020 12:22 PM CDT Temperature 36.2 C (97.2 F) 08/23/2020 11:52 AM CDT Respiratory Rate 18 08/23/2020 12:2 2 PM CDT Oxygen Saturation 98% 08/23/2020 12: 22 PM CDT Inhaled Oxygen Concentration - - Weight 76.1 kg (167 lb 12.3 oz) 08/23/2020 8:14 AM CDT Height 157.5 cm (5' 2 ) 08/23/2020 8:14 AM CDT Body Mass Index 30.69 08/23/2020 8:14 AM CDT Plan of Treatment Not on file Medical Devices Implanted Type Area Labor Training Manager Device Identifier Shelf Expiration Date Model / Serial / Lot [employer] [id number] Corkscrew Fiberwire 2.2mm 4mm 12.3mm 2 Needle Wire Foot Ankle 4-0 - [id number] Implanted:Qty: 1 on 08/23/2020 by Eileen Lipscomb MD at [facility] Left: Fingers [employer] 10/06/2024 AR-1318FT-4 0 / / [id number] [place] [address] [facility] Enterra Feed [place] BLUE ACCESS CHOICE [place] Care Teams Wire Brush Operator Relationship Specialty Start Date End Date Chapincito Cuevas MD [address] [place] [address] PCP - General 11/26/10
--- OUTSIDE RECORDS SUMMARY | 2024-05-26 07:47 | XMS_ITS | Referral Summary ---
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 Gender Identity Not on file Sexual Orientation [...] on file Medical Devices Implanted Type Area Workforce Development Assistant Device Identifier Shelf Expiration Date Model / Serial / Lot [employer] Inc [id number] Corkscrew Fiberwire 2.2mm 4mm 12.3mm 2 Needle Wire Foot Ankle 4-0 - [id number] Implanted:Qty: 1 on 08/23/2020 by Eileen Lipscomb MD at [facility] Left: Fingers [employer] 10/06/2024 AR-[id number]-4 0 / / [id number] Insurance [facility] [place] [address] [employer] [place] [address] [place] [address] [employer] [place] Care Teams Rn Field Case Manager Relationship Specialty Start Date End Date Chapincito Cuevas MD [address] [place] [address] PCP - General 11/26/10
--- OUTSIDE RECORDS SUMMARY | 2024-05-26 07:47 | XMS_ITS | Data Portability ---
Author Organization [place] [facility], Main Office Address [address] [place] [address] Care Team Providers Care Pack Changer Name Role Phone PATT ROBERTO Primary Care Provider PATT ROBERTO Referring Provider Assessment Encounter Date Assessment Date Assessment LastModified by Organization Details LastModified Time 01/06/2023 01/06/2023 The patient has impingement with rotator cuff tendinitis of the right shoulder she has significant subacromial spurring and AC joint arthrosis noted on x-rays today. We talked about treatment options for this today in detail, I offered her formal therapy she declined we talked about cortisone and prednisone she wanted proceed we will get her prescription for the oral prednisone under sterile conditions at her request I injected the patient's right shoulder subacromial space in the office with 4 cc 0.5% bupivacaine and 20 mg of Kenalog. Patient tolerated the procedure well. If her symptoms continue or worsen an MRI scan could be done to further assess the rotator cuff tendon she certainly has a large subacromial hook due to AC joint arthrosis that most likely is causing chronic impingement. We did talk about surgical options for this as well we will see how she does I will see her back in 6 weeks or so. The patient also has bilateral thumb CMC arthrosis which is essentially [id number]-he-[id number] with mild subluxation of the joints bilaterally right looks slightly worse than left. She is right-handed. We talked about treatment options for this as well she will take the oral prednisone she wanted shot of cortisone both thumbs therefore under sterile conditions I injected the patient's bilateral thumb CMC joints in the office today with 2 cc of 0.5% bupivacaine and 10 mg of Kenalog each. Patient tolerated procedure well. We did talk about surgical options for this in detail today as well she has never had any treatment for her thumb so hopefully we will get her by with conservative measures for now. 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 I will see her back in 6 weeks or so to see what impact treatment has had she voiced understanding and agrees above plan she will call for any further problems difficulties or questions. Not available 01/06/2023 16:21:32 04/02/2023 04/02/2023 Patient has chronic rotator cuff tendinitis of the right shoulder with AC joint arthrosis as well. 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 At her request under sterile conditions I injected the patient's right shoulder subacromial space in the office with 4 cc 0.5% bupivacaine and 20 mg of Kenalog. The patient tolerated the procedure well. I also injected the patient's bilateral basilar thumb joints in the office today with 2 cc 0.5% bupivacaine and 10 mg of Kenalog each. The patient tolerated the procedure well. I will see her back as needed we will start a course of oral prednisone followed by meloxicam 15 mg daily she will stop the ibuprofen for now. We will see if this works better for her. If she returns with continuing right shoulder pain we will get an MRI scan she voiced understanding and agrees the above plan. Not available 04/02/2023 10:17:57 Plan of Treatment Reminders Order Date Submit Date Provider Last Modified By Organization Details Last Modified Time Details Appointments None recorded. Lab None recorded. Referral None recorded. Procedures injection/a spiration joint/bursa (PROC) 2023 024 [email or web address] In-Office Order, Internal Use Only DO Not Attach Compendium DO Not Attach Compendium, Do Not Delete/merge, [id number] 09:20:31 injection/a spiration joint/bursa (PROC) 2023 024 [email or web address] In-Office Order, Internal Use Only DO Not Attach Compendium DO Not Attach Compendium, Do Not Delete/merge, [id number] 4 09:29:30 injection/a spiration joint/bursa (PROC) 2022 023 [email or web address] In-Office Order, Internal Use Only DO Not Attach Compendium DO Not Attach Compendium, Do Not Delete/merge, [id number] 3 15:44:14 injection/a spiration joint/bursa (PROC) 2022 023 [email or web address] In-Office Order, Internal Use Only DO Not Attach Compendium DO Not Attach Compendium, Do Not Delete/merge, [id number] 3 15:05:40 Surgeries None recorded. Imaging XR, hand 2022 023 [email or web address] [facility] [place], [address], [place], [address], 3 16:39:23 XR, shoulder 2022 023 [email or web address] [facility] [place], [address], [place], [address], 3 16:39:23 Medication Orders bupivacaine HCl 0.5 % (5 mg/mL) injection solution [address], [address] [place] [address], [address], 4 10:18:40 Kenalog 10 mg/mL suspension for injection [address], [address] [place] [address], [address], 4 10:18:40 meloxicam 15 mg tablet [address], [address] [place] [address], [address], 4 10:18:40 prednisone 10 mg tablets in a dose pack [address], [address] [place] [address], [address], 4 10:18:40 bupivacaine HCl 0.5 % (5 mg/mL) injection solution [address], [address] [place] [address], [address], 4 10:18:40 Kenalog 10 mg/mL suspension for injection [address], [address] [place] [address], [address], 4 10:18:40 bupivacaine HCl 0.5 % (5 mg/mL) injection solution [address], [address] [place] [address], [address], 3 16:39:23 Kenalog 10 mg/mL suspension for injection [address], [address] [place] [address], [address], 3 16:39:23 bupivacaine HCl 0.5 % (5 mg/mL) injection solution [address], [address] [place] [address], [address], 3 16:39:23 Kenalog 10 mg/mL suspension for injection [address], [address] [place] [address], [address], 3 16:39:23 prednisone 10 mg tablets in a dose pack [address], [address] [place] [address] [place], [address], 16:39:23 Patient TargetsNo targets recorded. Patient InstructionsNo instructions recorded. Reason for Referral None Reported. Results Created Date Observation Date Name Description Value Unit Range Abnormal Flag Note LastModifiedBy Organization Detail LastModifiedTime 01/07/20 XR, shoul lyla No observ ation record ed. [email or web address] [facility] [place] [address], [place], [address], 01/06/2023 16:22:39 01/07/20 XR, hand No observ ation record ed. [email or web address] [facility] [place] [address], [place], [address], 01/06/2023 16:24:05 Result Notes None recorded. Problems Name Problem SNOMED Code Status Onset Date Resolution Date Notes Provider Name and Address Organization Details Recorded Time Enthesopat hy of hip region 04762030 Active Not Available [employer] 3 20:40:03 Pain of right shoulder joint 3967158776516 9100 Active 2022 GIUSEPPE Hunter, [facility] [employer] [facility] 3 15:03:55 Pain of bilateral hands 7759619723038 9109 Active 2022 GI[employer] Hunter, [facility] [employer] [facility] 3 15:29:14 Osteoarthr itis of right acromiocla vicular joint 3086411363174 104 Active 2022 ROEL Philip [address], [place], [address] , [employer] [facility] [employer] [facility] 3 16:24:37 Impingemen t syndrome of right shoulder region 5812728032880 02 Active 2022 ROEL Philip [address], [place], [address] , [employer] [facility] [employer] [facility] 3 16:24:44 Tendinitis of right rotator cuff 2750872524764 9104 Active 2022 ROEL Philip [address], [address] [address], [place], [address] , [employer] [facility] 3 16:24:52 Primary arthrosis of first carpometac arpal joints, bilateral 902501786 Active 2022 ROEL Philip [address], [address] [address], [place], [address] , [employer] [facility] 3 16:25:02 Osteoarthr osis of the carpometac arpal joint of the thumb 38629271 Active 2023 ROEL Philip [address] [address], [place], [address] , [employer] 4 10:18:06 Problem Notes None recorded. Procedures Surgical History Date Name Laterality Status Provider Name and Address Organization Details Recorded Time 0 Back Surgeries completed Not Available [facility] 05/07 20:39:30 Imaging Results Imaging Date Name Status LastModified by Organiz ation Details LastModified Time 01/06/2023 XR, shoulder completed [email or web address] [facility] [place] [address] [facility] [address], [place], [address], 01/06/2023 16:22:39 01/06/2023 XR, hand completed [email or web address] [facility] [place] [address] [facility] [address], [place], [address], 01/06/2023 16:24:05 Procedure Notes None recorded. Medical Equipment None Reported. Allergies Allergen ID Allergen Name Allergen Category Reaction Reaction Severity Criticality Documentation Date Start Date Code Code System Note Provider Name and Address Organization Details Recorded Time 12668 codeine medicatio n Not available Not available Not available 05/07/2022 2670 RxNorm Not Available [facility] 20:40:51 Medications Name Sig Start Date Stop Date Status Note LastModified by Organization Details LastModified Time prednisone 10 mg tablet TAKE 1 TAB BY MOUTH 3 TIMES DAILY X3 DAYS, TWICE DAILY X3 DAYS, ONCE DAILY X3 DAYS active Not Available Not Available No t Available ibuprofen 800 mg tablet TAKE 1 TABLET BY MOUTH EVERY DAY NEEDED FOR PAIN active Not Available Not Available No t Available meloxicam 15 mg tablet TAKE 1 TABLET BY MOUTH EVERY DAY active Not Available Not Available No t Available phenazopyri dine 200 mg tablet TAKE 1 TAB 2 HOURS AFTER MEAL NEEDED 01/06 completed Not Available Not Available Not Available bupivacaine HCl 0.5 % (5 mg/mL) injection solution Take 20 mg by injection route. 2023 active Not Available Not Available Not Avai lable sulfamethox azole 800 mg-trimetho prim 160 mg tablet active Not Available Not Available Not Available prednisone 10 mg tablets in a dose pack Take 1 tab by mouth, 3 times a day for 3 daysTake 1 tab by mouth 2 times a day for 2 daysTake 1 tab by mouth once a day for 1 day 2023 active Not Available Not Available Not Avai lable lorazepam 0.5 mg tablet 04/14 completed Not Available Not Available Not Available Kenalog 10 mg/mL suspension for injection Take 20 mg by injection route. 2023 active [facility]: 0003- 0494- 20 Not Available Not Available Not Available benzonatate 100 mg capsule TAKE 1 CAPSULE BY MOUTH THREE TIMES A DAY NEEDED FOR COUGH 01/06 completed Not Available Not Available Not Available cephalexin 500 mg capsule TAKE 1 CAPSULE BY MOUTH FOUR TIMES A DAY UNTIL FINISHED 11/27 completed Not Available Not Available Not Available valsartan 320 mg tablet TAKE 1 TABLET BY MOUTH EVERY DAY active Not Available Not Available No t Available hydrochloro thiazide 12.5 mg capsule 08/14 completed Not Available Not Available Not Available diclofenac sodium 75 mg tablet,brooke yed release TAKE 1 TABLET BY MOUTH TWICE A DAY 06/14 completed Not Available Not Available Not Available hydrochloro thiazide 25 mg tablet TAKE 1 TABLET BY MOUTH EVERY DAY active Not Available Not Available No t Available polyethylen e glycol 3350 17 gram/dose oral powder 04/14 completed Not Available Not Available Not Available zolpidem 10 mg tablet 10 MG ORALLY EVERY EVENING active Not Available Not Available No t Available ondansetron 4 mg disintegrat ing tablet active Not Available Not Available N ot Available losartan 100 mg tablet 04/14 completed Not Available Not Available Not Available etodolac 500 mg tablet active Not Available Not Available Not Available diazepam 5 mg tablet active Not Available Not Available No t Available oxycodone 5 mg tablet active Not Available Not Available No t Available olmesartan 40 mg tablet 06/14 completed Not Available Not Available Not Available nitrofurant oin monohydrate /macrocryst als 100 mg capsule TAKE 1 CAPSULE BY MOUTH TWICE A DAY 01/06 completed Not Available Not Available Not Available lidocaine (PF) 10 mg/mL (1 %) injection solution In office injection administe red by the provider 01/06 completed [facility]: 0409- 4276- 17 Not Available Not Available Not Available Paxlovid 300 mg (150 mg x 2)-100 mg tablets in a dose pack TAKE 2 TABLETS (NIRMATRE LVIR) AND TAKE 1 TABLET (RITONAVI R) BY MOUTH TWICE A DAY FOR 5 DAYS active Not Available Not Available No t Available Vitals Date Recorded Body mass index (BMI) Body height Pain severity - 0-10 verbal numeric rating [Score] - Reported Body weight Provider Name and Address Organization Details Last Updated DateTime 11/29/2020 31.1 kg/m2 157.48 cm 0 90974.7 g Not Available [facility] 05/07/2022 20:39:51 Date Recorded Body mass index (BMI) Body height Oxygen saturation Oxygen saturation in Arterial blood by Pulse oximetry Heart rate Body temperature Body weight Systolic blood pressure Diastolic blood pressure Provider Name and Address Organization Details Last Updated DateTime 1 32 kg/m2 157.48 cm 98 % 98 % 76 /min 98.5 [degF] 79942.6 6 g 118 mm[Hg] 74 mm[Hg] Not Available [facility] 20:39:50 Date Recorded Body height Body mass index (BMI) Body weight Provider Name and Address Organization Details Last Updated DateTime 01/06/2023 157.48 cm 30.2 kg/m2 37112.74 g Darling Montgomery CNA [place] [facility] 01/06/2023 15:01:06 Date Recorded Body height Body mass index (BMI) Body weight Provider Name and Address Organization Details Last Updated DateTime 04/02/2023 157.48 cm 31.1 kg/m2 14059.7 g Darling Montgomery CNA [place] [facility] 04/02/2023 09:17:29 Social History Question Answer Notes LastModified by Organizat ion Details LastModified Time Tobacco Smoking Status Former Smoker Not Available [facility] 05/07/2022 20:39:23 What Is Your Level Of Alcohol Consumption? None [id number] Information not available 05/07/2022 What Is Your Level Of Caffeine Consumption? 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 1-5yearssince lastcigarette [id number] Information not available 05/07/2022 What Is Your Relationship Status? [id number] Information not available 05/07/2022 Do You Use Any Illicit Or Recreational Drugs? No [id number] Information not available 05/07/2022 Has Tobacco Cessation Counseling Been Provided? No [id number] Information not available 05/07/2022 Do You Or Have You Ever Used Any Other Forms Of Tobacco Or Nicotine? No [id number] Information not available 05/07/2022 Sex: Unknown Functional Status None recorded. Mental Status None recorded. Family History Nothing Reported. Medical History Condition Response OSTEOPOROSIS HYPERTENSION Y Gynecological HistoryNo gynecological history recorded. Obstetrics History GPAL:G 0 P 0 0 0 0 Past Encounters Encounter ID Performer Location Encounter Start Date Encounter Closed Date Diagnosis/Indication Diagnosis SNOMED-CT Code Diagnosis ICD10 Code Diagnosis Note [id number] [facility] [place] [address] [place] [address] 06/14/2020 00:00:00 06/14/2020 11:31:38 [id number] [facility] [place] [address] [place] [address] 11/27/2020 00:00:00 11/27/2020 14:25:03 [id number] [facility] [place] [address] [place] [address] 11/29/2020 00:00:00 11/29/2020 14:51:24 [id number] [facility] [place] [address] [place] [address] 01/28/2021 00:00:00 01/28/2021 14:42:24 [id number] [facility] [place] [address] [place] [address] 10/01/2021 00:00:00 10/01/2021 15:59:57 [id number] ROEL Philip [facility] [place] [address] [place] [address] 01/06/2023 14:41:42 01/06/2023 16:32:07 Pain of right shoulder joint 3158238054 5794170 M25.511 Pain of bi lateral hands 0563883186 7513577 M79.641 M79.642 Osteoarthr itis of right acromioclavicular joint 4836364463 361511 M19.011 Impingemen t syndrome of right shoulder region 9987225787 65615 M75.41 Tendinitis of right rotator cuff 4646014432 8818571 M67.813 Primary ar throsis of first carpometacarpal joints, bilateral 129182432 M18.0 [id number] ROEL Philip [facility] [place] [address] [place] [address] 04/02/2023 09:01:53 04/02/2023 15:56:49 Pain of right shoulder joint 7739965903 9476713 M25.511 Osteoarthr itis of right acromioclavicular joint 3773072291 007693 M19.011 Tendinitis of right rotator cuff 3443477094 4942748 M67.813 Pain of bi lateral hands 2884989228 0459257 M79.641 M79.642 Osteoarthr osis of the carpometacarpal joint of the thumb 74959002 M18.9 bilateral Health Concerns Section Related Observation LastModified by Organization Detai ls LastModified Time None Recorded Concern Status LastModified by Organization Details LastModified Time None Recorded Advance Directives Directive None Recorded Payers Encounter Date Sequence Insurance Name Policy Number Policy Alva Covered Member ID Alva Member ID Guarantor Name 01/06/[address] [facility] [id number] Maximiliano Will [id number] Erin Will 04/02/[address] [facility] [id number] Maximiliano Will [id number] Erin Will Notes Date Note Type Note Provider Name and Address Organization Details Recorded Time 01/06/2023 text/html patient returns with 3 different complaints. 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 Denies any specific trauma or injury couple of years ago she was told she had some impingement and tendinitis in the shoulder was treated with a shot of cortisone in did well until recently. She now complains of pain with trying to reach behind her back or reach out to lift anything heavy or do anything repetitive that requires pushing or pulling. This causes aching pain in the shoulder but no weakness by her report. She has trouble with going all the way overhead she reports anterior shoulder pain and occasional popping cracking in the shoulder. For the most part she is comfortable unless she has to do anything heavy or get into certain awkward positions. Sometimes the pain is about a 7 on a scale 1-10. She has tried some ibuprofen which does help somewhat. She complains of continuing pain coming in today for to talk about further treatment options.Her other 2 complaints today are bilateral basilar thumb pain. She has pain with pinching or gripping against resistance. 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 She has aching pain at the basilar thumb joints worse with activities and relieved by rest she has failed ibuprofen as well for this denies any specific trauma injury no numbness or tingling no locking or catching. This has been ongoing for a few months now she comes in today to talk about her bilateral basilar thumb joint pain as well.A new past medical history sheet was reviewed and signed on intake sheet of today's date drug allergies current medications family social history previous surgical history 10 point review of systems was reviewed discussed in detail today with the patient. ROEL Philip [address], [facility] [address], [place], [address], [employer] 01/06/2023 16:26:21 04/02/2023 text/html patient returns complaining of right shoulder pain and bilateral thumb basilar joint pain. She has a chronic history of rotator cuff tendinitis for the past several years. She has had a few shots over the last 4 years the 1st shot lasted up about 2 years this last shot only lasted 3 months. 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 She also has bilateral basilar thumb pain previous x-rays show significant CMC arthrosis she is trying to avoid surgical intervention. She comes in today requesting repeat cortisone injections all 3 sites. I have advised her that repeated injections into the shoulder may cause thinning and degeneration of the rotator cuff we will try 1 more after this an MRI scan to may be indicated if she continues to have pain. Denies any new trauma or injury. She has aching and pain all the time in the right shoulder that radiates into the upper arm denies any weakness. Also has pain with pinching gripping and grasping which she does all day with her hands at work this is localized to the bilateral basilar thumb joints. She takes ibuprofen 800 mg occasionally for pain. ROEL Philip, [address], [place], [address], [employer] 04/02/2023 10:18:34 OBGyn Episode No OBEpisode recorded.
[2024-05-26 08:03] LABS: Hematocrit 39.2 % (37.0-47.0); Hemoglobin 12.9 g/dL (12.0-15.0); Mean Corpuscular HGB Conc 32.9 g/dl (32-36); Mean Corpuscular Hemoglobin 30.4 pg (26-34); Mean Corpuscular Volume 92.5 fl (80-100); Mean Platelet Volume 9.6 fl (7.4-10.4); Platelet Count Result 260 k/mm3 (150-375); Red Blood Count 4.24 M/mm3 (4.2-5.4); Red Cell Distribution Width 13.3 % (11.5-14.5); White Blood Count 5.7 K/mm3 (4.5-10.0)
[2024-05-26 08:17] LABS: Alanine Aminotransferase 23 U/L (6-35); Albumin Level 3.9 g/dL (3.5-5.1); Alkaline Phosphatase 93 U/L (38-126); Anion Gap 7 mmol/L (4-12); Aspartate Amino Transferase 26 U/L (14-36); Bilirubin,Total 0.5 mg/dL (0.2-1.3); Blood Urea Nitrogen 24 mg/dL (7-17); Calcium 8.9 mg/dL (8.4-10.2); Carbon Dioxide 28 mmol/L (22-30); Chloride 106 mmol/L (98-107); Cholesterol 195 mg/dL (0-200); Estimated Glomerular Filt Rate 49; Glucose 88 mg/dL (65-110); HDL Direct 52 mg/dL; Potassium 3.5 mmol/L (3.4-5.0); Sodium 141 mmol/L (137-145); Triglycerides 159 mg/dL (<150)
[2024-05-26 08:18] LABS: Add Urine Microscopic? YES; Appearance Urine Cloudy (Clear); Bacteria Urine Rare /hpf; Bilirubin Urine Negative (Negative); Blood Urine Negative (Negative); Color Urine Yellow (Yellow); Glucose Urine UA Negative (Negative); Ketones Urine Negative (Negative); Leukocyte Esterase Ur 2+ LEU/UL (Negative); Nitrate Urine Negative (Negative); Non Pathogenic Casts 0-2; Protein Urine Negative (Negative); RBC Urine 0-2 /hpf (0-2); Specific Grav Ur 1.015 (1.001-1.035); Squamous Epithelial Cell Urine Moderate /hpf (Few); Urobilinogen Urine 0.2 mg/dL (<2.0); WBC Urine 21-50 /hpf (0-3); pH Urine 5.5 (5.0-9.0)
[2024-05-26 08:28] LABS: LDL Cholesterol Direct 95 mg/dL
== END 2024-05-26 07:44 | disposition home or self-care (01) ==
LOC: ANHLAB 07:44
PROVIDERS: PCP Family Medicine; Visit Provider Family Medicine
DX: E78.1 Pure hyperglyceridemia (principal); I10 Essential (primary) hypertension; Z00.00 Encounter for general adult medical examination without abnormal findings; E78.5 Hyperlipidemia, unspecified; R53.83 Other fatigue
CPT/HCPCS: 36415; 80053; 80061; 81001; 85027

== ENCOUNTER 2024-07-20 08:45 | Outpatient (CLI) | payer BC, SELFPAY ==
--- NOTE | ~2024-07-20 | DEXA_ITS ---
Bone Density Report Name: TASNEEM GALINDO Age: 69 Sex: Female Ethnicity: White Date of : 1955 Indication: osteopenia; Referring Provider: Leno Ordaz Study: Bone densitometry was performed. Exam Date: July 20, 2024 Accession number: [id number] Bone Density: Region BMD T-score Z-score Classification AP Spine(L1, L2, L3) 0.936 -0.7 1.2 Normal Femoral Neck (Left) 0.656 -1.7 -0.1 Osteopenia Total Hip (Left) 0.832 -0.9 0.5 Normal Femoral Neck (Right) 0.690 -1.4 0.2 Osteopenia Total Hip (Right) 0.823 -1.0 0.4 Normal Total Hip Mean 0.828 -1.0 0.5 Normal World Health Organization criteria for BMD impression classify patients as: Normal (T-score at or above -1.0), Osteopenia (T-score between -1.0 and -2.5), or Osteoporosis (T-score at or below -2.5). 10-year Fracture Risk(1): Major Osteoporotic Fracture 9.7% Hip Fracture 1.4% Reported Risk Factors: [place] (), Neck BMD=0.656, BMI=32.4 (1) FRAX(R) Version 3.08. Fracture probability calculated for an untreated patient. Fracture probability may be lower if the patient has received treatment. Previous Exams: -- Region Exam Age BMD T-score BMD Change BMD Change Date g/cm2 vs Baseline vs Previous -- AP Spine (L1-L3) 07/20/2024 69 0.936 -0.7 -9.0%* 0.5% 12/10/2021 66 0.931 -0.8 -9.4%* 13.1%* 04/09/2016 60 0.823 -1.8 -19.9%* -3.6%* 09/23/2013 58 0.854 -1.5 -16.9%* -8.5%* 09/23/2011 56 0.934 -0.8 -9.2%* -1.9% 07/13/2010 54 0.952 -0.6 -7.5%* -1.3% 07/11/2009 53 0.965 -0.5 -6.2%* -1.9% 08/14/2006 51 0.983 -0.3 -4.4%* -4.4%* 05/05/2005 49 1.028 0.1 Total Hip(Left) 07/20/2024 69 0.832 -0.9 -7.5%* -2.8% 12/10/2021 66 0.857 -0.7 -4.8%* 1.1% 04/09/2016 60 0.847 -0.8 -5.8%* -1.0% 09/23/2013 58 0.855 -0.7 -4.9%* -4.3%* 09/23/2011 56 0.894 -0.4 -0.7% 1.1% 07/13/2010 54 0.884 -0.5 -1.7% 5.5%* 07/11/2009 53 0.838 -0.9 -6.8%* -6.8%* 08/14/2006 51 0.900 -0.3 Total Hip(Right) 07/20/2024 69 0.823 -1.0 -8.3%* 1.7% 12/10/2021 66 0.809 -1.1 -9.8%* -5.5%* 04/09/2016 60 0.857 -0.7 -4.6%* 2.6% 09/23/2013 58 0.835 -0.9 -7.0%* -6.5%* 09/23/2011 56 0.893 -0.4 -0.5% 2.1% 07/13/2010 54 0.874 -0.6 -2.6% 6.8%* 07/11/2009 53 0.819 -1.0 -8.8%* -8.8%* 08/14/2006 51 0.898 -0.4 -- *Denotes significance at 95% confidence level, LSC for AP Spine = 0.022 g/cm2, LSC for Total Hip = 0.027 g/cm2 Rate of change results reflect vertebral levels common to all scans Clinical Information Provided by Patient: Patient maximum height was 61.5 Menopause Age: 49 No regular weight bearing exercise Does not regularly consume dairy products Drinks caffeinated beverages Onset of menses at age 17 Number of children 3 Impression: The patient has low bone mass, based on the Left Femoral Neck T-score. The patient has an estimated ten-year risk of hip fracture of 1.4% and an estimated ten-year risk of major fracture of 9.7%, based on the WHO FRAX algorithm. No significant bone loss was observed. Discussion: BONE DENSITY IS LOW AT ONE OR MORE SKELETAL SITES. This patient's lowest T-score is low at one or more skeletal sites. It meets the World Health Organization's (WHO) criteria for “low bone mass” (T-score between -1.0 and -2.5). The patient's 10-year risk of fracture as calculated by FRAX is less than the threshold where pharmacological therapy is recommended by the National Osteoporosis Foundation (NOF). However, all treatment decisions require clinical judgment and consideration of individual patient factors, including patient preferences, comorbidities, previous drug use, risk factors not captured in the FRAX model (e.g., frailty, falls, vitamin D deficiency, increased bone turnover, interval significant decline in bone density) and possible under or overestimation of fracture risk by FRAX. The patient should follow a healthful lifestyle (good nutrition with adequate calcium and vitamin D, and appropriate weight-bearing exercise). Follow-Up: Consider repeating this study in 2 to 3 years to reassess this patient's status, or sooner if there is some new clinical indication. Reported by: HUY on 07/27/2024 12:46:00 PM. Reviewed, dictated and finalized at location [facility]
== END 2024-07-20 08:46 | disposition home or self-care (01) ==
LOC: MICIMG 08:46
PROVIDERS: PCP Family Medicine; Visit Provider Family Medicine
DX: Z78.0 Asymptomatic menopausal state (principal)
CPT/HCPCS: 77080

== ENCOUNTER 2024-08-10 16:53 | Outpatient (CLI) | payer BC, SELFPAY ==
--- OUTSIDE RECORDS SUMMARY | 2024-08-10 16:57 | XMS_ITS | Clinical Summary ---
Author Organization [facility] Address [address], [address] [address] Phone Care Team Providers Care Registered Route Associate Name Role Phone Chapincito Cuevas MD Primary Care Provider [phone] Samira Brennan DO Unavailable [phone] Allergies Active Allergy Reactions Criticality Noted Date Comments Codeine Unknown 11/18/2016 Medications MELATONIN PO Take 1 Tab by mouth nightly as needed. Active Family History Medical History Relation Name Comments No Known Problems Mother Relation Name Status Comments Father in [facility] t very young. 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 Not on file Not on file Last Filed Vital Signs Vital Sign Reading Time Taken Comments Blood Pressure 126/84 10/26/2017 9:00 AM CDT Pulse 99 10/26/2017 7:59 AM CDT Temperature 36 C (96.8 F) 10/26/2017 9:00 AM CDT Respiratory Rate 15 10/26/2017 9:00 AM CDT Oxygen Saturation 98% 10/26/2017 9:00 AM CDT Inhaled Oxygen Concentration - - Weight 77.1 kg (170 lb) 09/01/2017 9:00 AM CDT Height 157.5 cm (5' 2) 09/01/2017 9:00 AM CDT Body Mass Index 31.09 09/01/2017 9:00 AM CDT Plan of Treatment Health Maintenance Due Date Last Done Comments DEXA Bone Density 1955 Hepatitis C Virus (HCV) Screening 1955 TdaP Immunization 1955 Cologuard 2006 Immunochemical Fecal Occult Blood 2006 Mammogram 2006 Pneumococcal Immunization (5 0+ years) (1 of 1 - PCV) 2006 Zoster Immunization (1 of 2) 2006 Colonoscopy 10/26/2022 10/26/2017, 10/23/2016 Colorectal Cancer Screening 10/26/2022 Influenza Immunization (#1) 2023 SARS-COV-2 Immunization ( - season) 2023 Respiratory Syncytial Virus (RSV) Immunization (Adult) (1 - 1-dose 75+ series) 07/16/2031 10/26/2017, 10/23/2016 Hepatitis B Immunization Aged Out No longer eligible based on patient's age to complete this topic Meningococcal Immunization (ACWY) Aged Out No longer eligible b ased on patient's age to complete this topic Rotavirus Immunization Aged Out No lo nger eligible based on patient's age to complete this topic Procedures Procedure Name Priority Date/Time Associated Diagnosis Comments COLONOSCOPY Routine 10/23/2016 from Last 3 Months or Most Recently Relevant to Health Maintenance Results * COLONOSCOPY (10/23/2016) Chapincito Cuevas MD PROCEDURE/MINOR SURGICAL ORDSilvia BOCANEGRA Final Result from Last 3 Months or Most Recently Relevant to Health [place] [address] [facility] Member Subscriber Plan / Payer (Ef fective 2011-Present) Name:Erin Will Relation to Subscriber:Spouse Name:SAMIRA WILL Date of :1956 (Home) Address: [address] [place] [address] [place] [address] Payer ID:[id number] Type:PPO Address: [address] Care Teams Registered Route Associate Relationship Specialty Start Date End Date Chapincito Cuevas MD [address] [place] [address] PCP - General Family Medicine 05/07/16 Samira Brennan DO [address] [place] [address] Gastroenterology 10/28/16
--- OUTSIDE RECORDS SUMMARY | 2024-08-10 16:57 | XMS_ITS | Clinical Summary ---
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 Gender Identity Not on file Sexual Orientation [...] 8:14 AM CDT Height 157.5 cm (5' 2) 08/23/2020 8:14 AM CDT Body Mass Index 30.69 08/23/2020 8:14 AM CDT Plan of Treatment Not on file Medical Devices Implanted Type Area Trestle Builder Device Identifier Shelf Expiration Date Model / Serial / Lot Ar[employer]rex Inc [id number] Corkscrew Fiberwire 2.2mm 4mm 12.3mm 2 Needle Wire Foot Ankle 4-0 - [id number] Implanted:Qty: 1 on 08/23/2020 by Eileen Lipscomb MD at [facility] Left: Fingers [employer] Inc 10/06/2024 AR-1318FT-4 0 / / [id number] [place] [address] [facility] [employer] [place] Care Teams Safe And Vault Installer Relationship Specialty Start Date End Date Chapincito Cuevas MD [address] [place] [address] PCP - General 11/26/10
--- OUTSIDE RECORDS SUMMARY | 2024-08-10 16:57 | XMS_ITS | Clinical Summary ---
Author Organization [employer] [address] [facility] Address [address] [place] [address] Care Team Providers Care Barrel Repairer Name Role Phone Ashly Zaragoza MD Primary [...] Encounters Date Type Department Care Team Description 08/02/2024 External Device Data STL ABSTRACTION Provider, Abstract 07/27/2024 External Device Data STL ABSTRACTION Provider, Abstract 07/26/2024 External Device Data STL ABSTRACTION Provider, Abstract 05/25/2024 External Device Data STL ABSTRACTION Provider, Abstract 05/14/2024 External Device Data ST[place] ABSTRACTION Provider, [...] on file 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 Gender Identity Not on file Sexual Orientation [...] 9:50 AM CDT Height 157.5 cm (5' 2) 10/05/2019 9:50 AM CDT Body Mass Index 30.18 10/05/2019 9:50 AM CDT Plan of Treatment Health Maintenance Due Date Last Done Comments BREAST CANCER SCREENING 1996 FIT-DNA Q 3 years 2001 FIT/FOBT Q 1 year 2001 Flex Sig/CT Colonography Q 5 years 2001 PNEUMOCOCCAL VACCINE 50+ YEA RS (1 of 1 - PCV) 2006 ZOSTER VACCINE (1 of 2) 2006 INFLUENZA VACCINE (#1) 2023 OSTEOPOROSIS SCREENING 06/08/2024 06/09/2019 COLORECTAL SCREENING 10/27/2027 10/26/2017, 10/24/19 17 Colorectal Cancer Screening 10/27/2027 DTAP/TDAP/TD VACCINES (2 - Td or Tdap) 09/28/2029 RSV VACCINE (60+ or ) (1 - 1-dose 75+ series) 07/16/2031 Medical Devices Implanted Type Area Retail Event Coordinator Device Identifier Shelf Expiration Date Model / Serial / Lot Hemostatic Surgiflo 8ml W/Thrombin 2994 - [id number] Implanted:Qty: 1 on 10/05/2019 by Manuel Muñoz MD at [facility] Hemostatic N/A: Back J[employer]J- [employer] 07/06/2020 2994 / / [id number] Hemostatic Surgiflo 8ml W/Thrombin 2994 - [id number] Implanted:Qty: 2 on 10/05/2019 by Manuel Muñoz MD at [facility] Hemostatic N/A: Back [employer]- [employer] 08/06/2020 2994 / / [id number] Hemostatic Surgifoam Sz12-7 1972 - [id number] Implanted:Qty: 1 on 10/05/2019 by Manuel Muñoz MD at [facility] Hemostatic N/A: Back J&J- ETHICON ENDO-SURGERY INC 02/10/2023 1972 / / [id number] Juancarlos Xpdm Crv W/Line 40mm 1797-71-040 - Sload Number [id number] Implanted:Qty: 2 on 10/05/2019 by Manuel Muñoz MD at [facility] Juancarlos N/A: Back J&J- [employer] 1797-71-0 40 / LOAD NUMBER 411 / STERILIZE D ON 0 Description:all Depuy spinal hardware was processed on requisition [id number]. Setscrew Inner 17909-07-000 - Sload Number 411 Implanted:Qty: 4 on 10/05/2019 by Manuel Muñoz MD at [facility] Screw N/A: Back J&J- DEPUY SPINE INC 1796-04-0 00 / LOAD NUMBER 411 / STERILIZE D ON 0 Screw Exp Poly 7x45mm 5 - Sload Number 411 Implanted:Qty: 3 on 10/05/2019 by Manuel Muñoz MD at [facility] Screw N/A: Back J&J- DEPU[employer] SPINE [employer] 1797-02-12 45 / LOAD NUMBER 411 / STERILIZE D ON 0 Screw Exp Poly 6x45mm 5 - Sload Number 411 Implanted:Qty: 1 on 10/05/2019 by Manuel Muñoz MD at [facility] Screw N/A: Back J&J- DEPU[employer] SP[employer] 6 45 / LOAD NUMBER 411 / STERILIZE D ON 0 Allograft Vivigen Matrix 10ml Bl-1500-003 - [id number] Implanted:Qty: 1 on 10/05/2019 by Manuel Muñoz MD at [facility] Tissue N/A: Back [employer] 09/19/2020 BL-1500-0 [id number] / Allograft Vivigen Matrix 10ml Bl-1500-003 - [id number] Implanted:Qty: 1 on 10/05/2019 by Manuel Muñoz MD at [facility] Tissue N/A: Back [employer] 09/14/2020 BL-1500-0 [id number] / [place] [address] [place] BLUE ACCESS/TRUE BLUE PPO Advance Directives For more information, please contact: [phone] * Full Code (Latest Code Status on [...] 12:26 PM 08/29/2019 2:44 PM Care Teams Barrel Repairer Relationship Specialty Start Date End Date Ashly Zaragoza MD [address] [place] [address] PCP - General Family Practice 10/04/19
--- OUTSIDE RECORDS SUMMARY | 2024-08-10 16:57 | XMS_ITS | Referral Summary ---
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 Gender Identity Not on file Sexual Orientation [...] on file Medical Devices Implanted Type Area Beauty School Instructor Device Identifier Shelf Expiration Date Model / Serial / Lot Ar[employer] Inc [id number] Corkscrew Fiberwire 2.2mm 4mm 12.3mm 2 Needle Wire Foot Ankle 4-0 - [id number] Implanted:Qty: 1 on 08/23/2020 by Eileen Lipscomb MD at [facility] Left: Fingers [employer] 10/06/2024 AR-1318FT-4 0 / / [id number] Insurance [facility] [place] [address] [place] [address] [employer] [place] BLUE [employer] CHOICE [place] Care Teams Net Mvc Developer Relationship Specialty Start Date End Date Chapincito Cuevas MD [address] [place] [address] PCP - General 11/26/10
[2024-08-10 18:08] LABS: Alanine Aminotransferase 21 U/L (6-35); Albumin Level 4.1 g/dL (3.5-5.1); Alkaline Phosphatase 125 U/L (38-126); Anion Gap 6 mmol/L (4-12); Aspartate Amino Transferase 31 U/L (14-36); Bilirubin,Total 0.6 mg/dL (0.2-1.3); Blood Urea Nitrogen 17 mg/dL (7-17); Calcium 11.2 mg/dL (8.4-10.2); Carbon Dioxide 29 mmol/L (22-30); Chloride 102 mmol/L (98-107); Estimated Glomerular Filt Rate 49; Glucose 101 mg/dL (65-110); Potassium 3.5 mmol/L (3.4-5.0); Sodium 137 mmol/L (137-145); Total Protein 7.3 g/dL (6.3-8.2)
== END 2024-08-10 16:54 | disposition home or self-care (01) ==
LOC: ANHLAB 16:55
PROVIDERS: PCP Family Medicine; Visit Provider Family Medicine
DX: I10 Essential (primary) hypertension (principal)
CPT/HCPCS: 36415; 80053

== ENCOUNTER 2024-08-24 10:02 | Outpatient (CLI) | payer BC, SELFPAY ==
[2024-08-24 10:55] LABS: Alanine Aminotransferase 20 U/L (6-35); Albumin Level 3.9 g/dL (3.5-5.1); Alkaline Phosphatase 127 U/L (38-126); Anion Gap 5 mmol/L (4-12); Aspartate Amino Transferase 27 U/L (14-36); Bilirubin,Total 0.4 mg/dL (0.2-1.3); Blood Urea Nitrogen 24 mg/dL (7-17); Calcium 9.8 mg/dL (8.4-10.2); Carbon Dioxide 29 mmol/L (22-30); Chloride 102 mmol/L (98-107); Estimated Glomerular Filt Rate 53; Glucose 116 mg/dL (65-110); Potassium 3.3 mmol/L (3.4-5.0); Sodium 136 mmol/L (137-145); Total Protein 6.9 g/dL (6.3-8.2)
[2024-08-24 11:10] LABS: Vitamin D 25 Hydroxy 34.5 ng/mL
--- OUTSIDE RECORDS SUMMARY | 2024-08-24 11:21 | XMS_ITS | Clinical Summary ---
Author Organization [facility] Address [address], [address] [address] Phone Care Team Providers Care Electrogalvanizing Machine Operator Name Role Phone Chapincito Cuevas MD Primary Care Provider [phone] Samira Brennan DO Unavailable [phone] Allergies Active Allergy Reactions Criticality Noted Date Comments Codeine Unknown 11/18/2016 Medications MELATONIN PO Take 1 Tab by mouth nightly as needed. Active Family History Medical History Relation Name Comments No Known Problems Mother Relation Name Status Comments Father in [facility] t very young. Mother Alive Social [...] (Adult) (1 - 1-dose 75+ series) 07/16/2031 Hepatitis B Immunization Aged Out No longer [...] COLONOSCOPY (10/23/2016) Chapincito Cuevas MD PROCEDURE/MINOR SURGICAL ORDE SAHRA Final Result from Last 3 Months or Most Recently Relevant to Health [place] [address] [facility] Care Teams Electrogalvanizing Machine Operator Relationship Specialty Start Date End Date Chapincito Cuevas MD [address] [place] [address] PCP - General Family Medicine 05/07/16 Samira Brennan DO [address] [place] [address] Gastroenterology 10/28/16
--- OUTSIDE RECORDS SUMMARY | 2024-08-24 11:21 | XMS_ITS | Referral Summary ---
Author Organization 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 Gender Identity Not on file Sexual Orientation [...] on file Medical Devices Implanted Type Area Electrical And Radio Mock Up Mechanic Device Identifier Shelf Expiration Date Model / Serial / Lot Ar[employer] Inc [id number] Corkscrew Fiberwire 2.2mm 4mm 12.3mm 2 Needle Wire Foot Ankle 4-0 - [id number] Implanted:Qty: 1 on 08/23/2020 by Eileen Lipscomb MD at [facility] Left: Fingers [employer] 10/06/2024 AR-1318FT-4 0 / / [id number] Insurance [facility] [place] [address] [place] [address] [employer] [place] [employer] [place] Care Teams Woods Overseer Relationship Specialty Start Date End Date Chapincito Cuevas MD [address] [place] [address] PCP - General 11/26/10
--- OUTSIDE RECORDS SUMMARY | 2024-08-24 11:21 | XMS_ITS | Clinical Summary ---
Author Organization [employer] [address] [facility] Address [address] [place] [address] Care Team Providers Care Wholesale Loan Processor Name Role Phone Ashly Zaragoza MD Primary [...] on file Legal Sex Female 10:03 AM SHOCHET Gender Identity Not on file Sexual Orientation [...] series) 07/16/2031 Medical Devices Implanted Type Area Sand Control Worker Device Identifier Shelf Expiration Date Model / Serial / Lot Hemostatic Surgiflo 8ml W/Thrombin 2994 - [id number] Implanted:Qty: 1 on 10/05/2019 by Manuel Muñoz MD at [facility] Hemostatic N/A: Back J&J- [employer] 07/06/2020 2994 / / [id number] Hemostatic Surgiflo 8ml W/Thrombin 299 - [id number] Implanted:Qty: 2 on 10/05/2019 by Manuel Muñoz MD at [facility] Hemostatic N/A: Back J&J- [employer] 08/06/2020 2994 / / [id number] Hemostatic Surgifoam Sz12-7 1971 - [id number] Implanted:Qty: 1 on 10/05/2019 by Manuel Muñoz MD at [facility] Hemostatic N/A: Back J&J- ETHICON ENDO-SURGERY INC 02/10/2023 1972 / / [id number] Juancarlos Xpdm Crv W/Line 40mm 1797-71-040 - Sload Number 411 Implanted:Qty: 2 on 10/05/2019 by Manuel Muñoz MD at [facility] Juancarlos N/A: Back J&J- DEPUY ORTHOPAED[employer] INC 1797-71-0 40 / LOAD NUMBER 411 / STERILIZE D ON 0 Description:all Depuy spinal hardware was processed on requisition [id number]. [facility] 1797-02-000 - Sload Number 411 Implanted:Qty: 4 on 10/05/2019 by Manuel Muñoz MD at [facility] Screw N/A: Back J&J- DE[employer] SPINE INC 00 / LOAD NUMBER 411 / STERILIZE D ON 0 Screw Exp Poly 7x45mm 5 - Sload Number 411 Implanted:Qty: 3 on 10/05/2019 by Manuel Muñoz MD at [facility] Screw N/A: Back J&J- DE[employer] SP[employer] 1797-02-12 45 / LOAD NUMBER 411 / STERILIZE D ON 0 Screw Exp Poly 6x45mm 855 - Sload Number 411 Implanted:Qty: 1 on 10/05/2019 by Manuel Muñoz MD at [facility] Screw N/A: Back J&J- DE[employer] 1797-02-11 45 / LOAD NUMBER 411 / STERILIZE D ON 0 Allograft Vivigen Matrix 10ml Bl-1500-003 - [id number] Implanted:Qty: 1 on 10/05/2019 by Manuel Muñoz MD at [facility] Tissue N/A: Back [employer] 09/19/2020 BL-1500-0 5-8 050 / Allograft Vivigen Matrix 10ml Bl-1500-003 - [id number] Implanted:Qty: 1 on 10/05/2019 by Manuel Muñoz MD at [facility] Tissue N/A: Back [employer] 09/14/2020 BL-1500-0 [id number] / [place] [address] [place] [address] [employer] BLUE ACCESS/TRUE BLUE PPO Advance Directives For more information, please contact: [phone] * Full Code (Latest Code Status on [...] 12:26 PM 08/29/2019 2:44 PM Care Teams Wholesale Loan Processor Relationship Specialty Start Date End Date Ashly Zaragoza MD [address] [place] [address] PCP - General Family Practice 10/04/19
--- OUTSIDE RECORDS SUMMARY | 2024-08-24 11:21 | XMS_ITS | Data Portability ---
Author Organization [place] [facility], Main Office Address [address] [place] [address] Care Team Providers Care Executive Advisor Name Role Phone PATT ROBERTO Primary Care [...] bilateral thumb CMC arthrosis which is essentially [id number] with mild subluxation of the joints bilaterally [...] the above plan. Not available 04/02/2023 10:17:57 06/13/2024 06/13/2024 The patient has trochanteric bursitis of the right hip at her request under sterile conditions I injected the patient's right hip trochanteric bursa in the office with 4 cc of 0.5% bupivacaine and 20 mg of Kenalog. Patient tolerated procedure well. I have recommended she restart meloxicam 15 mg daily she states she has an old prescription at home she is going to start taking this once again. We talked about stretching exercises icing and activity modification. The patient also has rotator cuff tendonitis and impingement type symptoms of the right shoulder. X-rays do show some mild arthritic changes particularly the AC joint she has a type 2 acromion likely causing impingement. We talked about treatment options today she knows what to do in terms of physical therapy she is going to continue to work on those exercises along with activity modification when necessary she will also use meloxicam for this. She wanted to try a shot of cortisone therefore under sterile conditions I injected the patient's right shoulder subacromial space in the office with 4 cc 0.5% bupivacaine and 20 mg of Kenalog. Patient tolerated procedure well. I will see her back as needed she wanted to wait and see how things go she did not want to make a follow up appointment today. Last time I saw her she got a year of relief hopefully she will get the same this time. She voiced understanding and agreed with the above plan she will call for any further problems difficulties or questions. Not available 06/13/2024 12:29:03 Plan of Treatment Reminders Order Date Submit Date Provider Last Modified By Organization Details Last Modified Time Details Appointments None recorded. Lab None recorded. Referral None recorded. Procedures injection/a spiration joint/bursa (PROC) 2024 025 [email or web address] In-Office Order, Internal Use Only DO Not Attach Compendium DO Not Attach Compendium, Do Not Delete/merge, [id number] 12:04:16 injection/a spiration joint/bursa (PROC) 2024 025 [email or web address] In-Office Order, Internal Use Only DO Not Attach Compendium DO Not Attach Compendium, Do Not Delete/merge, [id number] 12:04:16 injection/a spiration joint/bursa (PROC) 2023 024 [email or web address] In-Office Order, Internal Use Only DO Not Attach Compendium DO Not Attach Compendium, Do Not Delete/merge, [id number] 09:20:31 injection/a spiration joint/bursa (PROC) 2023 024 [email or web address] In-Office Order, Internal Use Only DO Not Attach Compendium DO Not Attach Compendium, Do Not Delete/merge, [id number] 09:29:30 injection/a spiration joint/bursa (PROC) 2022 023 [email or web address] In-Office Order, Internal Use Only DO Not Attach Compendium DO Not Attach Compendium, Do Not Delete/merge, [id number] 3 15:44:14 injection/a spiration joint/bursa (PROC) 2022 023 [email or web address] In-Office Order, Internal Use Only DO Not Attach Compendium DO Not Attach Compendium, Do Not Delete/merge, [id number] 3 15:05:40 Surgeries None recorded. Imaging XR, shoulder, 2 or more view 2024 025 [email or web address] [facility] [place], [address], [place], [address], 5 12:32:20 XR, hip + pelvis, unilateral, 2 or 3 view 2024 025 [email or web address] [facility] [place], [address], [place], [address], 5 12:32:20 XR, hand 2022 023 [email or web address] [facility] [place], [address], [place], [address], 3 16:39:23 XR, shoulder 2022 023 [email or web address] [facility] [place], [address], [place], [address], 3 16:39:23 Medication Orders bupivacaine HCl 0.5 % (5 mg/mL) injection solution [address], [address] [place], [address], 5 12:32:20 Kenalog 10 mg/mL suspension for injection [address], [address] [place], [address], 5 12:32:20 bupivacaine HCl 0.5 % (5 mg/mL) injection solution [address] [email or web address] #3259, [address] [place] [address], [address], 5 12:32:20 Kenalog 10 mg/mL suspension for injection [address]/[facility], [address] [place] [address], [address], 5 12:32:20 bupivacaine HCl 0.5 % (5 mg/mL) injection solution 2023 024 [email or web address] [facility] #[facility]259, [address] [place] [address], [address], 5 11:39:17 Kenalog 10 mg/mL suspension for injection 2023 024 [email or web address] [facility], [address] [place] [address], [address], 5 11:39:47 meloxicam 15 mg tablet [address], [address] [place] [address], [address], 4 10:18:40 prednisone 10 mg tablets in a dose pack 2023 024 [email or web address] [facility], [address] [place] [address], [address], 5 11:40:24 bupivacaine HCl 0.5 % (5 mg/mL) injection solution 2023 024 [email or web address] [facility], [address] [place] [address], [address], 5 11:39:17 Kenalog 10 mg/mL suspension for injection 2023 024 [email or web address] [facility], [address] [place] [address], [address], 5 11:39:47 bupivacaine HCl 0.5 % (5 mg/mL) injection solution 2022 023 [email or web address] [facility], [address] [place] [address], [address], 5 11:39:17 Kenalog 10 mg/mL suspension for injection 2022 023 [email or web address] [facility], [address] [place] [address], [address], 5 11:39:47 bupivacaine HCl 0.5 % (5 mg/mL) injection solution 2022 023 [email or web address] [facility], [address] [place] [address], [address], 5 11:39:17 Kenalog 10 mg/mL suspension for injection 2022 023 [email or web address] [facility], [address] [place] [address], [address], 5 11:39:47 prednisone 10 mg tablets in a dose pack 2022 023 [email or web address] [facility], [address] [place] [address], [address], 5 11:40:24 Patient TargetsNo targets recorded. Patient InstructionsNo instructions recorded. Reason for Referral None Reported. Results Created Date Observation Date Name Description Value Unit Range Abnormal Flag Note LastModifiedBy Organization Detail LastModifiedTime 01/07/20 23 XR, shoul lyla No observ ation record ed. [email or web address] [facility] [place] [address], [place], [address], 01/06/2023 16:22:39 01/07/20 23 XR, hand No observ ation record ed. [email or web address] [facility] [place] [address], [address], 01/06/2023 16:24:05 06/14/19 25 XR, shoul lyla, 2 or more view No observ ation record ed. [email or web address] [facility] [place] [address], [address], 06/13/2024 12:30:04 06/14/19 25 XR, hip + pelvi s, unila teral , 2 or 3 view No observ ation record ed. [email or web address] [facility] [place] [address], [address], 06/13/2024 12:30:48 Result Notes None recorded. Problems Name Problem SNOMED Code Status Onset Date Resolution Date Notes Provider Name and Address Organization Details Recorded Time Enthesopat hy of hip region 22373231 Active Not Available [employer] 3 20:40:03 Pain of right shoulder joint 3131061858290 9100 Active 2022 Darling Montgomery CNA null, [facility] 3 15:03:55 Pain of bilateral hands 1886461020713 9109 Active 2022 Darling Montgomery STAFF PHYSICIAN null, [employer] [facility] 3 15:29:14 Osteoarthr itis of right acromiocla vicular joint 4121982588076 104 Active 2022 ROEL Philip [address] [facility], [facility] [address], [place], [address] , [facility] [employer] [facility] 3 16:24:37 Impingemen t syndrome of right shoulder region 1347544491338 02 Active 2022 ROEL Philip [address], [address], [place], [address] , [facility] [employer] [facility] 3 16:24:44 Tendinitis of right rotator cuff 8272142048740 9104 Active 2022 ROEL Philip [address] [employer], [address], [place], [address] , [facility] [employer] [facility] [employer] [facility] [employer] 3 16:24:52 Primary arthrosis of first carpometac arpal joints, bilateral 675295574 Active 2022 ROEL Philip [address], [address], [place], [address] , [facility] [employer] [facility] [employer] [facility] [employer] 3 16:25:02 Osteoarthr osis of the carpometac arpal joint of the thumb 05344896 Active 2023 ROEL Philip [address] [employer], [address], [place], [address] , [facility] [employer] 4 10:18:06 Pain of right hip joint 1173079583415 02 Active 2024 GIUSE[facility]PE Hunter, [facility] [employer] [facility] 5 11:42:17 Trochanter ic bursitis of right hip 8836715611844 00 Active 2024 Laney amezcua, [facility] [employer] 5 12:01:51 Problem Notes None recorded. Procedures Surgical History Date Name Laterality Status Provider Name and Address Organization Details Recorded Time 0 Back Surgeries completed Not Available [facility] 05/07 20:39:30 Imaging Results None recorded. Procedure Notes None recorded. Medical Equipment None Reported. Allergies Allergen ID Allergen Name Allergen Category Reaction Reaction Severity Criticality Documentation Date Start Date Code Code System Note Provider Name and Address Organization Details Recorded Time 89583 codeine medicatio n Not available Not available Not available 05/07/2022 2670 RxNorm Not Available [facility] 3 20:40:51 Medications Name Sig Start Date Stop Date Status Note LastModified by Organization Details LastModified Time prednisone 10 mg tablet TAKE 1 TAB BY MOUTH 3 TIMES DAILY X3 DAYS, TWICE DAILY X3 DAYS, ONCE DAILY X3 DAYS 06/13 completed Not Available Not Available Not Available ibuprofen 800 mg tablet TAKE 1 TABLET BY MOUTH EVERY DAY NEEDED FOR PAIN 06/13 completed Not Available Not Available Not Available meloxicam 15 mg tablet TAKE 1 TABLET BY MOUTH EVERY DAY active Not Available Not Available No t Available phenazopyri dine 200 mg tablet TAKE 1 TAB 2 HOURS AFTER MEAL NEEDED 01/06 completed Not Available Not Available Not Available bupivacaine HCl 0.5 % (5 mg/mL) injection solution Take 20 mg by injection route. 2024 active Not Available Not Available Not Avai lable atenolol 25 mg tablet TAKE 1 TABLET BY MOUTH EVERY DAY 06/13 completed Not Available Not Available Not Available sulfamethox azole 800 mg-trimetho prim 160 mg tablet active Not Available Not Available Not Available prednisone 10 mg tablets in a dose pack Take 1 tab by mouth, 3 times a day for 3 daysTake 1 tab by mouth 2 times a day for 2 daysTake 1 tab by mouth once a day for 1 day 06/13 completed Not Available Not Available Not Available lorazepam 0.5 mg tablet 04/14 completed Not Available Not Available Not Available Kenalog 10 mg/mL suspension for injection Take 20 mg by injection route. 2024 active [facility]: 0003- 0494- 20 Not Available Not Available Not Available benzonatate 100 mg capsule TAKE 1 TO 2 CAPS (100 TO 200 MG) THREE TIMES DAILY NEEDED FOR COUGH. MAX 600 MG/DAY 06/13 completed Not Available Not Available Not Available cephalexin 500 mg capsule TAKE 1 CAPSULE BY MOUTH FOUR TIMES A DAY 06/13 completed Not Available Not Available Not Available valsartan 320 mg tablet TAKE 1 TABLET BY MOUTH EVERY DAY active Not Available Not Available No t Available hydrochloro thiazide 12.5 mg capsule 08/14 completed Not Available Not Available Not Available methimazole 5 mg tablet 5 MG ORALLY DAILY SKIP THURSDAY active Not Available Not Available No t Available diclofenac sodium 75 mg tablet,brooke yed [...] Available Not Available zolpidem 10 mg tablet TAKE 1 TABLET BY MOUTH EVERY DAY IN THE EVENING active Not Available Not Available No t Available methylpredn isolone 4 mg tablets in a dose pack TAKE 1 TABLET BY MOUTH DIRECTED PLEASE TAKE DIRECTED ON DOSE GANGA 06/13 completed Not Available Not Available Not Available ondansetron 4 mg disintegrat ing tablet [...] administe red by the provider 01/06 completed [facility]: 0409- 4276- 17 Not Available Not Available Not Available Paxlovid 300 mg (150 mg x 2)-100 mg tablets in a dose pack TAKE 2 TABLETS (NIRMATRE LVIR) AND TAKE 1 TABLET (RITONAVI R) BY MOUTH TWICE A DAY FOR 5 DAYS 06/13 completed Not Available Not Available Not Available Vitals Date Recorded Body height Body mass index (BMI) Body weight Provider Name and Address Organization Details Last Updated DateTime 04/02/2023 157.48 cm 31.1 kg/m2 92822.7 g GIUSEPPE Hunter [employer] [facility] 04/02/2023 09:17:29 Date Recorded Body height Body mass index (BMI) Body weight Provider Name and Address Organization Details Last Updated DateTime 06/13/2024 157.48 cm 31.1 kg/m2 58134.7 g GIUSEPPE Hunter [employer] 06/13/2024 11:38:37 Date Recorded Body height Body mass index (BMI) Body weight Provider Name and Address Organization Details Last Updated DateTime 01/06/2023 157.48 cm 30.2 kg/m2 60354.74 g [facility]USEPPE Hunter [facility] 01/06/2023 15:01:06 Date Recorded Body mass index (BMI) Body height Oxygen saturation Oxygen saturation in Arterial blood by Pulse oximetry Heart rate Body temperature Body weight Systolic blood pressure Diastolic blood pressure Provider Name and Address Organization Details Last Updated DateTime 1 32 kg/m2 157.48 cm 98 % 98 % 76 /min 98.5 [degF] 01071.6 6 g 118 mm[Hg] 74 mm[Hg] Not Available [facility] 20:39:50 Social History Question Answer Notes LastModified by [employer] Details LastModified Time Tobacco Smoking Status Former Smoker Not Available [facility] 05/07/2022 20:39:23 What Is Your Level Of Caffeine Consumption? Moderate [id number] Information not available 05/07/2022 When Did You Quit Smoking? 1-5yearssince lastcigarette [id number] 026 Information not available 05/07/2022 What Is Your Relationship Status? [id number] 026 Information not available 05/07/2022 Has Tobacco Cessation Counseling Been Provided? No [id number] 026 Information not available 05/07/2022 Sex: Unknown Functional Status Question Answer Note LastModified by [employer] Details LastModified Time Do you use any illicit or recreational drugs? No [id number] 26 Information not available 05/07/2022 Do you or have you ever used any other forms of tobacco or nicotine? No [id number] 26 Information not available 05/07/2022 What is your level of alcohol consumption? 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 Family History Nothing Reported. Medical History Condition Response OSTEOPOROSIS HYPERTENSION Y Gynecological HistoryNo gynecological history recorded. Obstetrics History GPAL:G 0 P 0 0 0 0 Past Encounters Encounter ID Performer Location Encounter Start Date Encounter Closed Date Diagnosis/Indication Diagnosis SNOMED-CT Code Diagnosis ICD10 Code Diagnosis Note [id number] Vinicio Flores, PA [facility] [place] [address] [place] [address] 06/14/2020 00:00:00 06/14/2020 11:31:38 [id number] MD EVGENY [facility] [place] [address] [place] [address] 11/27/2020 00:00:00 11/27/2020 14:25:03 [id number] ROEL Philip [facility] [place] [address] [place] [address] 11/29/2020 00:00:00 11/29/2020 14:51:24 [id number] MD GODFREY [facility] [place] [address] [place] [address] 01/28/2021 00:00:00 01/28/2021 14:42:24 [id number] MD GODFREY [facility] [place] [address] [place] [address] 10/01/2021 00:00:00 10/01/2021 15:59:57 [id number] Alex Gaffney MD [facility] [place] [address] [place] [address] 01/06/2023 14:41:42 01/06/2023 16:32:07 Pain of right shoulder joint 6720335500 7100914 M25.511 Pain of bi lateral hands 1580142202 6220987 M79.641 M79.642 Osteoarthr itis of right acromioclavicular joint 4929191098 578299 M19.011 Impingemen t syndrome of right shoulder region 9223925490 86219 M75.41 Tendinitis of right rotator cuff 3598256092 9559921 M67.813 Primary ar throsis of first carpometacarpal joints, bilateral 064087469 M18.0 [id number] MD GODFREY [facility] [place] [address] [place] [address] 04/02/2023 09:01:53 04/02/2023 15:56:49 Pain of right shoulder joint 6769752821 0369913 M25.511 Osteoarthr itis of right acromioclavicular joint 8603804560 328659 M19.011 Tendinitis of right rotator cuff 0412216950 5213426 M67.813 Pain of bi lateral hands 9297562877 8979522 M79.641 M79.642 Osteoarthr osis of the carpometacarpal joint of the thumb 88161623 M18.9 bilateral [id number] Osvaldo Roche MD [facility] [place] [address] [place] [address] 06/13/2024 11:29:04 06/13/2024 12:04:35 Osteoarthritis of right acromioclavicular joint 0504402210 202099 M19.011 Pain of ri ght shoulder joint 3367626215 0006004 M25.511 Tendinitis of right rotator cuff 5356300066 3722088 M67.813 Pain of ri ght hip joint 0468594154 31991 M25.551 Trochanter ic bursitis of right hip 6494874120 55399 M70.61 Impingemen t syndrome of right shoulder region 9747401731 81269 M75.41 Health Concerns Section Related Observation LastModified by Organization Detai ls LastModified Time None Recorded Concern Status LastModified by Organization Details LastModified Time None Recorded Advance Directives Directive None Recorded Payers Insurance Date Sequence Insurance Name Policy Number Policy Alva Covered Member ID Alva Member ID Guarantor Name 06/22/2024 1 [facility] ([facility] [id number] Maximiliano Will [id number] Erin Will Notes Date Note Type [...] detail today with the patient. 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 She also has bilateral basilar thumb pain [...] ibuprofen 800 mg occasionally for pain. ROEL Philip [address] [facility], [address], [place], [address], [facility] [employer] 04/02/2023 10:18:34 06/13/2024 text/html Patient returns she is 68 years of age we have not seen her for over a year. The last time she was here we did injections into the bilateral thumb CMC joints this helped tremendously she is not having any pain in her hands today. 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 She states she got excellent relief from her last cortisone shot in March of 2023. 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 She has aching pain that radiates into the upper arm a bit denies any weakness no trauma or injury no loss of motion. She does take meloxicam daily 15 mg. This does help as well when she stopped taking it for a little bit recently her pain flared up pretty quickly. She comes in today requesting further evaluation treatment of recurrent right shoulder pain. She has been doing well for the past year after previous treatment.The patient is also complaining of right hip pain she states years ago she had a shot of cortisone for trochanteric bursitis. She feels as though she has this once again. Denies any groin pain no thigh pain the pain is all localized to the lateral trochanteric region. She stands all day if she is very active this throbs and aches at night she has trouble sleeping on that side. Denies any loss of motion of the hip no radicular pain down the leg and no weakness. She feels as though it is a recurrent trochanteric bursitis of the right hip she would like to have this evaluated today as well. Able to ambulate without groin or thigh pain. New past medical history sheet was reviewed and signed on the intake sheet of today's date drug allergies current medications family social history previous surgical history 10 point review of systems was reviewed and discussed in detail today with the patient. ROEL Philip [address] [facility], [place], [address], [place] [facility] 06/13/2024 12:32:09 OBGyn Episode No OBEpisode recorded.
--- OUTSIDE RECORDS SUMMARY | 2024-08-24 11:21 | XMS_ITS | Clinical Summary ---
[facility] Organization [facility] Address [address] [place] [address] Care Team Providers Care Crusher Dry Ground Mica Name Role Phone Chapincito Cuevas MD Primary Care Provider [phone]- [phone] Allergies Active Allergy Reactions Criticality Noted Date [...] (08/20/2020): Added automatically from request for surgery [id number] Surgical History Surgery Date Site/Laterality Comments BACK [...] on file Legal Sex Female 2:00 AM LEAF BINNER Gender Identity Not on file Sexual Orientation [...] on file Medical Devices Implanted Type Area Plasterer Helper Device Identifier Shelf Expiration Date Model / Serial / Lot [employer] [id number] Corkscrew Fiberwire 2.2mm 4mm 12.3mm 2 Needle Wire Foot Ankle 4-0 - [id number] Implanted:Qty: 1 on 08/23/2020 by Eileen Lipscomb MD at [facility] Left: Fingers [employer] 10/06/2024 [id number] / / [id number] [place] [address] [facility] Care Teams Crusher [employer] Mica Relationship Specialty Start Date End Date Chapincito Cuevas MD [address] [place] [address] PCP - General 11/26/10
[2024-08-24 11:25] LABS: Thyroid Stimulating Hormone 0.022 uIU/mL (0.465-4.680); Total Triiodothyronine (T3) 1.35 NG/ML (0.82-1.58)
== END 2024-08-24 10:03 | disposition home or self-care (01) ==
LOC: ANHLAB 10:04
PROVIDERS: PCP Family Medicine; Referring Provider Family Medicine; Visit Provider Internal Medicine
DX: E83.52 Hypercalcemia (principal); M85.80 Other specified disorders of bone density and structure, unspecified site; E05.90 Thyrotoxicosis, unspecified without thyrotoxic crisis or storm
CPT/HCPCS: 36415; 80053; 82306; 83519; 84439; 84443; 84445; 84480

== ENCOUNTER 2024-09-15 08:56 | Outpatient (CLI) | payer BC, SELFPAY ==
--- OUTSIDE RECORDS SUMMARY | 2024-09-15 09:02 | XMS_ITS | Referral Summary ---
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 Gender Identity Not on file Sexual Orientation [...] on file Medical Devices Implanted Type Area Fire Extinguisher Inspector Device Identifier Shelf Expiration Date Model / Serial / Lot [employer] [id number] Corkscrew Fiberwire 2.2mm 4mm 12.3mm 2 Needle Wire Foot Ankle 4-0 - [id number] Implanted:Qty: 1 on 08/23/2020 by Eileen Lipscomb MD at [facility] Left: Fingers [employer] 10/06/2024 [id number] / / [id number] Insurance [facility] [place] [address] [place] [address] [place] [address] [employer] [place] Care Teams Oyster Sorter Relationship Specialty Start Date End Date Chapincito Cuevas MD [address] [place] [address] PCP - General 11/26/10
--- OUTSIDE RECORDS SUMMARY | 2024-09-15 09:02 | XMS_ITS | Clinical Summary ---
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 Gender Identity Not on file Sexual [...] 2006 ZOSTER VACCINE (1 of 2) 2006 OSTEOPOROSIS SCREENING 06/08/2024 06/09/2019 INFLUENZA VACCINE (#1) 2024 COLORECTAL SCREENING 10/27/2027 10/26/2017, 10/24/19 17 Colorectal Cancer Screening 10/27/2027 DTAP/TDAP/TD VACCINES (2 - Td or Tdap) 09/28/2029 RSV VACCINE (60+ or ) (1 - 1-dose 75+ series) 07/16/2031 Medical Devices Implanted Type Area Aquaculturist Device Identifier Shelf Expiration Date Model / Serial / Lot Hemostatic Surgiflo 8ml W/Thrombin 2994 - [id number] Implanted:Qty: 1 on 10/05/2019 by Manuel Muñoz MD at [facility] Hemostatic N/A: Back [employer]- [employer] 07/06/2020 2994 / / [id number] Hemostatic Surgiflo 8ml W/Thrombin 299 - [id number] Implanted:Qty: 2 on 10/05/2019 by Manuel Muñoz MD at [facility] Hemostatic N/A: Back J[employer]- [employer] 08/06/2020 2994 / / [id number] Hemostatic Surgifoam Sz12-7 1971 - [id number] Implanted:Qty: 1 on 10/05/2019 by Manuel Muñoz MD at [facility] Hemostatic N/A: Back J&J- ETHICON ENDO-SURGERY INC 02/10/2023 1972 / / [id number] Juancarlos Xpdm Crv W/Line 40mm 1797-71-040 - Sload Number [id number] Implanted:Qty: 2 on 10/05/2019 by Manuel Muñoz MD at [facility] Juancarlos N/A: Back J[employer]J- DEPUY ORTHOP[employer]ED[employer] 1797-71-0 40 / LOAD NUMBER 411 / STERILIZE D ON 0 Description:all Depuy spinal hardware was processed on requisition [id number]. [facility] 1797-02-000 - Sload Number [id number] Implanted:Qty: 4 on 10/05/2019 by Manuel Muñoz MD at [facility] Screw N/A: Back J&J- DEPUY SPINE INC 00 / LOAD NUMBER 411 / STERILIZE D ON 0 Screw Exp Poly 7x45mm 5 - Sload Number [id number] Implanted:Qty: 3 on 10/05/2019 by Manuel Muñoz MD at [facility] Screw N/A: Back J[employer]J- [employer] SP[employer] 1797-02-12 45 / LOAD NUMBER 411 / STERILIZE D ON 0 Screw Exp Poly 6x45mm 935 - Sload Number [id number] Implanted:Qty: 1 on 10/05/2019 by Manuel Muñoz MD at [facility] Screw N/A: Back J&J- DE[employer] 1797-02-11 45 / LOAD NUMBER 411 / STERILIZE D ON 0 Allograft Vivigen Matrix 10ml Bl-1500-003 - [id number] Implanted:Qty: 1 on 10/05/2019 by Manuel Muñoz MD at [facility] Tissue N/A: Back [employer] 09/19/2020 BL-1500-0 5-8 050 / Allograft Vivigen Matrix 10ml Bl-1500-003 - [id number] Implanted:Qty: 1 on 10/05/2019 by Manuel Muñoz MD at [facility] Tissue N/A: Back [employer] 09/14/2020 BL-1500-0 [id number] / [place] [address] [place] [address] BCBS BLUE ACCESS/TRUE BLUE PPO Advance Directives For more information, please contact: [phone] * Full Code (Latest Code Status on [...] 12:26 PM 08/29/2019 2:44 PM Care Teams Software Applications Developer Relationship Specialty Start Date End Date Ashly Zaragoza MD [address] [place] [address] PCP - General Family Practice 10/04/19
--- OUTSIDE RECORDS SUMMARY | 2024-09-15 09:02 | XMS_ITS | Clinical Summary ---
Author Organization [facility] Address [address], [address] [address] Phone Care Team Providers Care Box Feeder Name Role Phone Chapincito Cuevas MD Primary Care Provider [phone] Samira Brennan DO Unavailable [phone] Allergies Active Allergy Reactions Criticality Noted Date Comments Codeine Unknown 11/18/2016 Medications MELATONIN PO Take 1 Tab by mouth nightly as needed. Active Family History Medical History Relation Name Comments No Known Problems Mother Relation Name Status Comments Father in [facility] very [facility]. Mother Alive Social History [...] Most Recently Relevant to [place] [address] [facility] Care Teams Box Feeder Relationship Specialty Start Date End Date Chapincito Cuevas MD [address] [place] [address] PCP - General Family Medicine 05/07/16 Samira Brennan DO [address] [place] [address] Gastroenterology 10/28/16
--- OUTSIDE RECORDS SUMMARY | 2024-09-15 09:02 | XMS_ITS | Data Portability ---
Author Organization [place] [facility], Main Office Address [address] [place] [address] Care Team Providers Care Motorcoach Driver Name Role Phone PATT ROBERTO Primary Care Provider PATT ROBERTO Referring Provider [phone] Assessment Encounter Date Assessment Date Assessment LastModified [...] bilateral thumb CMC arthrosis which is essentially ydei-zf-kefr with mild subluxation of the joints bilaterally [...] DO Not Attach Compendium, Do Not Delete/merge, [id number] 5 12:04:16 injection/a spiration joint/bursa (PROC) 2024 025 [email or web address] In-Office Order, Internal Use Only DO Not Attach Compendium DO Not Attach Compendium, Do Not Delete/merge, [id number] 5 12:04:16 injection/a spiration joint/bursa (PROC) 2023 024 [email or web address] In-Office Order, Internal Use Only DO Not Attach Compendium DO Not Attach Compendium, Do Not Delete/merge, [id number] 4 09:20:31 injection/a spiration joint/bursa (PROC) 2023 024 [email or web address] In-Office Order, Internal Use Only DO Not Attach Compendium DO Not Attach Compendium, Do Not Delete/merge, [id number] 4 09:29:30 injection/a spiration joint/bursa (PROC) 2022 023 [email or web address] In-Office Order, Internal Use Only DO Not Attach Compendium DO Not Attach Compendium, Do Not Delete/merge, [id number] 3 15:44:14 injection/a spiration joint/bursa (PROC) 2022 023 [email or web address] In-Office Order, Internal Use Only DO Not Attach Compendium DO Not Attach Compendium, Do Not Delete/merge, [id number] 3 15:05:40 Surgeries None recorded. Imaging XR, shoulder, 2 or more view 2024 025 [email or web address] [facility] [place], [address], [place], [address], 12:32:20 XR, hip + pelvis, unilateral, 2 or 3 view 2024 025 [email or web address] [facility] [place], [address], [place], [address], 5 12:32:20 XR, hand 2022 023 [email or web address] [facility] [place], [address], [place], [address], 3 16:39:23 XR, shoulder 2022 023 [email or web address] [facility] [place], [address], [place], [address], 3 16:39:23 Medication Orders bupivacaine HCl 0.5 % (5 mg/mL) injection solution [address]/Pharmacy [facility]3259, [address] [place], [address], 5 12:32:20 Kenalog 10 mg/mL suspension for injection [address]/Ph[facility]acy #3259, [address] [place] [address], [address], 5 12:32:20 bupivacaine HCl 0.5 % (5 mg/mL) injection solution 2024 025 [email or web address] [facility]acy #3259, [address] [place] [address], [address], 5 12:32:20 Kenalog 10 mg/mL suspension for injection [address]/Pharmacy [facility], [address] [place] [address], [address], 5 12:32:20 bupivacaine HCl 0.5 % (5 mg/mL) injection solution 2023 024 [email or web address] [facility]acy #[facility]259, [address] [place] [address], [address], 5 11:39:17 Kenalog 10 mg/mL suspension for injection 2023 024 [email or web address] [facility] #[facility]259, [address] [place] [address], [address], 5 11:39:47 meloxicam 15 mg tablet [address]/Pharmacy [facility], [address] [place] [address], [address], 4 10:18:40 prednisone 10 mg tablets in a dose pack 2023 024 [email or web address] [facility] #[facility]259, [address] [place] [address], [address], 5 11:40:24 bupivacaine HCl 0.5 % (5 mg/mL) injection solution 2023 024 [email or web address] [facility] #[facility], [address] [place] [address], [address], 5 11:39:17 Kenalog 10 mg/mL suspension for injection 2023 024 [email or web address] [facility] #[facility]259, [address] [place] [address], [address], 5 11:39:47 bupivacaine HCl 0.5 % (5 mg/mL) injection solution 2022 023 [email or web address] [facility] #[facility]259, [address] [place] [address], [address], 5 11:39:17 Kenalog 10 mg/mL suspension for injection 2022 023 [email or web address] [facility] #[facility]259, [address] [place] [address], [address], 5 11:39:47 bupivacaine HCl 0.5 % (5 mg/mL) injection solution 2022 023 [email or web address] [facility] #[facility]259, [address] [place] [address], [address], 5 11:39:17 Kenalog 10 mg/mL suspension for injection 2022 023 [email or web address] [facility] #[facility]259, [address] [place] [address], [address], 5 11:39:47 prednisone 10 mg tablets in a dose pack 2022 023 [email or web address] [facility] #[facility]259, [address] [place] [address], [address], 5 11:40:24 Patient TargetsNo targets recorded. Patient InstructionsNo instructions recorded. Reason for Referral None Reported. Results Created Date Observation Date Name Description Value Unit Range Abnormal Flag Note LastModifiedBy Organization Detail LastModifiedTime 01/07/20 23 XR, shoul lyla No observ ation record ed. [email or web address] [facility] [place] [address], [address], 01/06/2023 16:22:39 01/07/20 23 XR, hand No observ ation record ed. [email or web address] [facility] [place] [address], [address], 01/06/2023 16:24:05 06/14/19 25 XR, shoul lyla, 2 or more view No observ ation record ed. [email or web address] [facility] [place] [address], [address], 06/13/2024 12:30:04 06/14/19 25 XR, hip + pelvi s, unila teral , 2 or 3 view No observ ation record ed. [email or web address] [facility] [place] [address], [place], [address], 06/13/2024 12:30:48 Result Notes None recorded. Problems Name Problem SNOMED Code Status Onset Date Resolution Date Notes Provider Name and Address Organization Details Recorded Time Enthesopat hy of hip region 01342927 Active Not Available [employer] 3 20:40:03 Pain of right shoulder joint 2703399253077 9100 Active 2022 Darling Montgomery CNA null, [employer] 3 15:03:55 Pain of bilateral hands 5708606810798 9109 Active [address] CONTRACTOR null, [employer] 3 15:29:14 Osteoarthr itis of right acromiocla vicular joint 7704232266104 104 Active 2022 ROEL Philip [address] [facility], [facility] [address], [place], [address] , [employer] 3 16:24:37 Impingemen t syndrome of right shoulder region 9896449546260 02 Active 2022 ROEL Philip [address], [address] [facility], [place], [address] , [facility] [employer] [facility] 3 16:24:44 Tendinitis of right rotator cuff 1451222767588 9104 Active 2022 ROEL Philip [address], [address], [place], [address] , [facility] [employer] [facility] 3 16:24:52 Primary arthrosis of first carpometac arpal joints, bilateral 748248529 Active 2022 ROEL Philip [address], [address], [place], [address] , [facility] [employer] [facility] 3 16:25:02 Osteoarthr osis of the carpometac arpal joint of the thumb 81507092 Active 2023 ROEL Philip [address], [address], [place], [address] , [facility] [employer] [facility] 4 10:18:06 Pain of right hip joint 8505848312647 02 Active 2024 GIUSEPPE Hunter, [facility] 5 11:42:17 Trochanter ic bursitis of right hip 9635827153542 00 Active 2024 Laney amezcua, [facility] [employer] [facility] 5 12:01:51 Problem Notes None recorded. Procedures Surgical History Date Name Laterality Status Provider Name and Address Organization Details Recorded Time 0 Back Surgeries completed Not Available [facility] 05/07 20:39:30 Imaging Results None recorded. Procedure Notes None recorded. Medical Equipment None Reported. Allergies Allergen ID Allergen Name Allergen Category Reaction Reaction Severity Criticality Documentation Date Start Date Code Code System Note Provider Name and Address Organization Details Recorded Time 10604 codeine medicatio n Not available Not available Not available 05/07/2022 2670 RxNorm Not Available [facility] 3 20:40:51 Medications Name Sig Start Date [...] 20 mg by injection route. 2024 active [facility]: 0003- 0494- 20 Not Available Not Available [...] administe red by the provider 01/06 completed [facility]: 0409- 4276- 17 Not Available Not Available [...] Updated DateTime 04/02/2023 157.48 cm 31.1 kg/m2 19448.7 g Darling Montgomery CNA [employer] 04/02/2023 09:17:29 Date Recorded Body height Body mass index (BMI) Body weight Provider Name and Address Organization Details Last Updated DateTime 06/13/2024 157.48 cm 31.1 kg/m2 91217.7 g Darling Montgomery CNA [employer] 06/13/2024 11:38:37 Date Recorded Body height Body mass index (BMI) Body weight Provider Name and Address Organization Details Last Updated DateTime 01/06/2023 157.48 cm 30.2 kg/m2 08869.74 g [facility] Hunter [facility] 01/06/2023 15:01:06 Date Recorded Body mass index (BMI) Body height Oxygen saturation Oxygen saturation in Arterial blood by Pulse oximetry Heart rate Body temperature Body weight Systolic And Diastolic Provider Name and Address Organization Details Last Updated DateTime 1 32 kg/m2 157.48 cm 98 % 98 % 76 /min 98.5 [degF] 07835.6 6 g 118/74 mm[Hg] Not Available [facility] 3 20:39:50 Social History Question Answer Notes LastModified by [employer] Details LastModified Time Tobacco Smoking Status Former Smoker Not Available [facility] 05/07/2022 20:39:23 What Is Your Level Of Caffeine Consumption? Moderate [id number] Information not available 05/07/2022 When Did You Quit Smoking? 1-5yearssince lastcigarette [id number] 026 Information not available 05/07/2022 What Is Your Relationship Status? [id number] 026 Information not available 05/07/2022 Has Tobacco Cessation Counseling Been Provided? No [id number] 026 Information not available 05/07/2022 Sex: Unknown Functional Status Question Answer Note LastModified by [employer] Details LastModified Time Do you use any illicit or recreational drugs? No [id number] 26 Information not available 05/07/2022 Do you or have you ever used any other forms of tobacco or nicotine? No [id number] 26 Information not available 05/07/2022 What is your level of alcohol consumption? 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 Family History Nothing Reported. Medical History Condition Response OSTEOPOROSIS HYPERTENSION Y Gynecological HistoryNo gynecological history recorded. Obstetrics History GPAL:G 0 P 0 0 0 0 Past Encounters Encounter ID Performer Location Encounter Start Date Encounter Closed Date Diagnosis/Indication Diagnosis SNOMED-CT Code Diagnosis ICD10 Code Diagnosis Note [id number] Vinicio Flores, PA [facility] [place] [address] [place] [address] 06/14/2020 00:00:00 06/14/2020 11:31:38 [id number] MD EVGENY [facility] [place] [address] [place] [address] 11/27/2020 00:00:00 11/27/2020 14:25:03 [id number] ROEL Philip [facility] [place] [address] [place] [address] 11/29/2020 00:00:00 11/29/2020 14:51:24 [id number] MD GODFREY [facility] [place] [address] [place] [address] 01/28/2021 00:00:00 01/28/2021 14:42:24 [id number] MD GODFREY [facility] [place] [address] [place] [address] 10/01/2021 00:00:00 10/01/2021 15:59:57 [id number] Alex Gaffney MD [facility] [place] [address] [place] [address] 01/06/2023 14:41:42 01/06/2023 16:32:07 Pain of right shoulder joint 2658409687 3351758 M25.511 Pain of bi lateral hands 9188262268 6748909 M79.641 M79.642 Osteoarthr itis of right acromioclavicular joint 1054583711 282028 M19.011 Impingemen t syndrome of right shoulder region 5780423145 23251 M75.41 Tendinitis of right rotator cuff 2019164624 6938299 M67.813 Primary ar throsis of first carpometacarpal joints, bilateral 567522084 M18.0 [id number] MD GODFREY [facility] [place] [address] [place] [address] 04/02/2023 09:01:53 04/02/2023 15:56:49 Pain of right shoulder joint 2567432784 6155604 M25.511 Osteoarthr itis of right acromioclavicular joint 5115247564 433543 M19.011 Tendinitis of right rotator cuff 0001562859 2542233 M67.813 Pain of bi lateral hands 7999497820 1257354 M79.641 M79.642 Osteoarthr osis of the carpometacarpal joint of the thumb 56524181 M18.9 bilateral [id number] Osvaldo Roche MD [facility] [place] [address] [place] [address] 06/13/2024 11:29:04 06/13/2024 12:04:35 Osteoarthritis of right acromioclavicular joint 4036408176 149066 M19.011 Pain of ri ght shoulder joint 8997244865 0865294 M25.511 Tendinitis of right rotator cuff 7702847876 3004436 M67.813 Pain of ri ght hip joint 9043197846 71360 M25.551 Trochanter ic bursitis of right hip 8748211993 58971 M70.61 Impingemen t syndrome of right shoulder region 1963731792 47618 M75.41 Health Concerns Section Related Observation LastModified by Organization Detai ls LastModified Time None Recorded Concern Status LastModified by Organization Details LastModified Time None Recorded Advance Directives Directive None Recorded Payers Insurance Date Sequence Insurance Name Policy Number Policy Alva Covered Member ID Alva Member ID Guarantor Name 06/22/2024 1 [facility] [id number] Maximiliano Will [id number] Erin Will Notes Date Note Type [...] detail today with the patient. ROEL Philip [address] [place] [address], 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 She also has bilateral basilar thumb pain [...] mg occasionally for pain. ROEL Philip [address] [facility], [address], [place], [address], [facility] [place] [employer] 04/02/2023 10:18:34 06/13/2024 text/html Patient returns she [...] today with the patient. ROEL Philip [address] [facility], [place], [address], [place] [facility] [employer] 06/13/2024 12:32:09 OBGyn Episode No OBEpisode recorded.
--- OUTSIDE RECORDS SUMMARY | 2024-09-15 09:02 | XMS_ITS | Clinical Summary ---
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 Gender Identity Not on file Sexual [...] on file Medical Devices Implanted Type Area Twister In Device Identifier Shelf Expiration Date Model / Serial / Lot [employer] [id number] Corkscrew Fiberwire 2.2mm 4mm 12.3mm 2 Needle Wire Foot Ankle 4-0 - [id number] Implanted:Qty: 1 on 08/23/2020 by Eileen Lipscomb MD at [facility] Left: Fingers [employer] 10/06/2024 [id number]-4 0 / / [id number] [place] [address] [facility] [employer] [place] Care Teams Mower Operator Relationship Specialty Start Date End Date Chapincito Cuevas MD [address] [place] [address] PCP - General 11/26/10
[2024-09-15 10:15] LABS: Anion Gap 8 mmol/L (4-12); Blood Urea Nitrogen 23 mg/dL (7-17); Calcium 9.2 mg/dL (8.4-10.2); Carbon Dioxide 27 mmol/L (22-30); Chloride 105 mmol/L (98-107); Estimated Glomerular Filt Rate 46; Glucose 95 mg/dL (65-110); Potassium 3.8 mmol/L (3.4-5.0); Sodium 140 mmol/L (137-145)
[2024-09-15 10:44] LABS: Thyroid Stimulating Hormone 0.064 uIU/mL (0.465-4.680); Total Triiodothyronine (T3) 1.54 NG/ML (0.82-1.58)
[2024-09-15 10:46] LABS: Free T4 Free Thyroxine 1.33 ng/dL (0.78-2.19)
== END 2024-09-15 08:57 | disposition home or self-care (01) ==
LOC: ANHLAB 08:56
PROVIDERS: PCP Family Medicine; Visit Provider Internal Medicine
DX: E05.90 Thyrotoxicosis, unspecified without thyrotoxic crisis or storm (principal); I10 Essential (primary) hypertension; Z68.30 Body mass index [BMI] 30.0-30.9, adult; R79.89 Other specified abnormal findings of blood chemistry; E66.9 Obesity, unspecified; E78.1 Pure hyperglyceridemia; E04.2 Nontoxic multinodular goiter; M85.80 Other specified disorders of bone density and structure, unspecified site
CPT/HCPCS: 36415; 80048; 84439; 84443; 84480

== ENCOUNTER 2024-11-08 09:51 | Outpatient (CLI) | payer BC, SELFPAY ==
--- OUTSIDE RECORDS SUMMARY | 2024-11-08 10:16 | XMS_ITS | Clinical Summary ---
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 Gender Identity Not on file Sexual Orientation [...] on file Medical Devices Implanted Type Area Housekeeping Associate Device Identifier Shelf Expiration Date Model / Serial / Lot [employer] [id number] Corkscrew Fiberwire 2.2mm 4mm 12.3mm 2 Needle Wire Foot Ankle 4-0 - [id number] Implanted:Qty: 1 on 08/23/2020 by Eileen Lipscomb MD at [facility] Left: Fingers [employer] 10/06/2024 [id number]-4 0 / / [id number] [place] [address] [facility] [employer] [place] Care Teams Culinary Instructor Relationship Specialty Start Date End Date Chapincito Cuevas MD [address] [place] [address] PCP - General 11/26/10
--- OUTSIDE RECORDS SUMMARY | 2024-11-08 10:16 | XMS_ITS | Clinical Summary ---
Author Organization [facility] Address [address] [place] [address] Care Team Providers Care Box Feeder Name Role Phone Jolene Emerson Primary Care Provider [phone] Allergies Active Allergy Reactions Criticality Noted Date [...] Essential hypertension 09/29/2019 Other insomnia 09/29/2019 Immunizations Immunization Administration Dates Next Due Tdap (Historical Only-select [...] 2:28 PM CDT Height 157.5 cm (5' 2) 09/29/2019 2:28 PM CDT Body Mass Index 30.36 09/29/2019 2:28 PM CDT Plan of Treatment Health Maintenance Due Date Last Done Comments Hepatitis C 1974 Pneumococcal Vaccine: 50+ Ye ars (1 of 1 - PCV) 2006 Zoster Vaccines (1 of 2) 2006 Mammogram Screening 06/08/2021 06/09/2019 COVID-19 Vaccine (1 - 2023-2 5 season) 2024 Colorectal Cancer Screening Colonoscopy (10 Years) 10/27/2027 [...] Scanned SCANNING Final Result Performing Organization Address City/State/[facility] Co de Phone Number [facility] from Last 3 Months or Most Recently Relevant to Health Maintenance Insurance [facility] Care Teams Box Feeder Relationship Specialty Start [place] [address] [place] [address] PCP - General PHYSICIAN DESIGN PRINTING MACHINE SETTER 09/08/19
--- OUTSIDE RECORDS SUMMARY | 2024-11-08 10:16 | XMS_ITS | Clinical Summary ---
Author Organization [facility] Address [address], [address] [address] Phone Care Team Providers Care Media Executive Name Role Phone Chapincito Cuevas MD Primary Care Provider [phone] Samira Brennan DO Unavailable [phone] Allergies Active Allergy Reactions Criticality Noted Date Comments Codeine Unknown 11/18/2016 Medications MELATONIN PO Take 1 Tab by mouth nightly as needed. Active Family History Medical History Relation Name Comments No Known Problems Mother Relation Name Status Comments [place]. Mother Alive Social History [...] Due Date Last Done Comments Hepatitis C Virus (HCV) Screening 1955 TdaP Immunization 1955 Cologuard 2001 Immunochemical Fecal Occult Blood 2001 Pneumococcal Immunization (5 0+ years) (1 of 1 - PCV) 2006 Zoster Immunization (1 of 2) 2006 Colonoscopy 10/26/2022 10/26/2017, 10/23/2016 Colorectal Cancer Screening 10/26/2022 SARS-COV-2 Immunization (1 - 2023- season) 2023 Influenza Immunization (#1) 2024 Respiratory Syncytial Virus (RSV) Immunization (Adult) (1 - 1-dose 75+ series) 07/16/2031 Hepatitis B Immunization Aged Out No longer eligible based on patient's age to complete this topic Human Papillomavirus (HPV) Immunization Aged Out No longer eligible b ased [...] Most Recently Relevant to [place] [address] [facility] Member Subscriber Plan / Payer (Ef fective 2011-Present) Name:Erin Will Relation to Subscriber:Spouse Name:SAMIRA WILL Date of :1957 (Home) Address: [address] [place] [address] [place] [address] Payer ID:[id number] Type:PPO Address: [address] Care Teams Media Executive Relationship Specialty Start Date End Date Chapincito Cuevas MD [address] [place] [address] PCP - General Family Medicine 05/07/16 Samira Brennan DO [address] [place] [address] Gastroenterology 10/28/16
--- OUTSIDE RECORDS SUMMARY | 2024-11-08 10:16 | XMS_ITS | Clinical Summary ---
Author Organization [place] [id number] [facility] Address [address] [place] [address] Care Team Providers Care Penology Teacher Name Role Phone Ashly Zaragoza MD Primary [...] Encounters Date Type Department Care Team Description 10/12/2024 External Device Data [facility]CTION Provider, Abstract 10/11/2024 External Device Data [facility] Provider, Abstract 09/21/2024 External Device Data [facility] Provider, Abstract 09/21/2024 External Device Data [facility] Provider, Abstract 09/20/2024 External Device Data [facility] Provider, Abstract 08/30/2024 External Device Data [facility] Provider, [...] on file 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 [employer] Gender Identity Not on file Sexual Orientation [...] series) 07/16/2031 Medical Devices Implanted Type Area Fire Extinguisher Charger Device Identifier Shelf Expiration Date Model / Serial / Lot Hemostatic Surgiflo 8ml W/Thrombin 2994 - [id number] Implanted:Qty: 1 on 10/05/2019 by Manuel Muñoz MD at [facility] Hemostatic N/A: Back [employer] 07/06/2020 2994 / / [id number] Hemostatic Surgiflo 8ml W/Thrombin 2994 - [id number] Implanted:Qty: 2 on 10/05/2019 by Manuel Muñoz MD at [facility] Hemostatic N/A: Back [employer] 08/06/2020 2994 / / [id number] Hemostatic Surgifoam Sz12-7 1971 - [id number] Implanted:Qty: 1 on 10/05/2019 by Manuel Muñoz MD at [facility] Hemostatic N/A: Back [employer]- [employer] 02/10/2023 1972 / / [id number] Juancarlos Xpdm Crv W/Line 40mm 1797-71-040 - Sload Number [id number] Implanted:Qty: 2 on 10/05/2019 by Manuel Muñoz MD at [facility] Juancarlos N/A: Back [employer]- [employer] 1797-71-0 40 / LOAD NUMBER 411 / STERILIZE D ON 0 Description:all Depuy spinal hardware was processed on requisition [id number]. Setscrew Inner 179-02-000 - Sload Number 411 Implanted:Qty: 4 on 10/05/2019 by Manuel Muñoz MD at [facility] Screw N/A: Back [employer]- [employer] 00 / LOAD NUMBER 411 / STERILIZE D ON 0 Screw Exp Poly 7x45mm 5 - Sload Number 411 Implanted:Qty: 3 on 10/05/2019 by Manuel Muñoz MD at [facility] Screw N/A: Back [employer]- [employer] 1797-02-12 45 / LOAD NUMBER 411 / STERILIZE D ON 0 Screw Exp Poly 6x45mm 1797-02-645 - Sload Number 411 Implanted:Qty: 1 on 10/05/2019 by Manuel Muñoz MD at [facility] Screw N/A: Back [employer] 1797-02-11 45 / LOAD NUMBER 411 / STERILIZE D ON 0 Allograft Vivigen Matrix 10ml Bl-1500-003 - [id number] Implanted:Qty: 1 on 10/05/2019 by Manuel Muñoz MD at [facility] Tissue N/A: Back [employer] 09/19/2020 BL-1500-0 [id number] / Allograft Vivigen Matrix 10ml Bl-1500-003 - [id number] Implanted:Qty: 1 on 10/05/2019 by Manuel Muñoz MD at [facility] Tissue N/A: Back [employer] 09/14/2020 BL-1500-0 [id number] / [place] [address] [employer] BLUE ACCESS/TRUE BLUE PPO Advance Directives For more information, please contact: [phone] * Full Code (Latest Code Status on [...] 12:26 PM 08/29/2019 2:44 PM Care Teams Penology Teacher Relationship Specialty Start Date End Date Ashly Zaragoza MD [address] [place] [address] PCP - General Family Practice 10/04/19
[2024-11-08 10:50] LABS: Free T4 Free Thyroxine 1.38 ng/dL (0.78-2.19)
[2024-11-08 11:05] LABS: Thyroid Stimulating Hormone 0.256 uIU/mL (0.465-4.680); Total Triiodothyronine (T3) 1.34 NG/ML (0.82-1.58)
== END 2024-11-08 09:52 | disposition home or self-care (01) ==
LOC: ANHLAB 09:52
PROVIDERS: PCP Family Medicine; Visit Provider Internal Medicine
DX: R79.89 Other specified abnormal findings of blood chemistry (principal); Z68.30 Body mass index [BMI] 30.0-30.9, adult; I10 Essential (primary) hypertension; E66.9 Obesity, unspecified; E78.1 Pure hyperglyceridemia; E04.2 Nontoxic multinodular goiter; E05.90 Thyrotoxicosis, unspecified without thyrotoxic crisis or storm; M85.80 Other specified disorders of bone density and structure, unspecified site
CPT/HCPCS: 36415; 84439; 84443; 84480

== ENCOUNTER 2024-11-30 14:01 | Outpatient (CLI) | payer BC, SELFPAY ==
--- NOTE | ~2024-11-30 | US_ITS ---
US thyroid INDICATION: Multinodular goiter TECHNIQUE: Real-time sonographic images of the thyroid gland were obtained. COMPARISON: No prior studies for comparison. FINDINGS: The right thyroid lobe measures 4.8 x 1.9 x 2 cm. The left thyroid lobe measures 3.9 x 1.9 x 2.2 cm. In the right lobe there are several masses some of which are solid and some cystic or complex cystic, the largest measuring 11 x 9 x 7 mm which is wider than tall, hypoechoic, mostly solid, smoothly marginated without echogenic foci, TR 4. This is slightly decreased in size compared with prior examination. There are multiple masses in the isthmus and left lobe, largest dominant mass being cystic measuring 1.9 cm, benign. In the isthmus there is a 11 x 10 x 5 mm oval parallel oriented hypoechoic mass which is solid, wider than tall, hypoechoic, smoothly marginated without echogenic foci, T4. IMPRESSION: 1. No significant change to multinodular goiter. Twelve-month follow-up ultrasound recommended. Reviewed, dictated and finalized at location O. IMPRESSION: 1. No significant change to multinodular goiter. Twelve-month follow-up ultras ound recommended.
== END 2024-11-30 14:02 | disposition home or self-care (01) ==
LOC: GOSHIMG 14:01
PROVIDERS: PCP Internal Medicine; Visit Provider Internal Medicine
DX: E05.90 Thyrotoxicosis, unspecified without thyrotoxic crisis or storm (principal); I10 Essential (primary) hypertension; Z68.30 Body mass index [BMI] 30.0-30.9, adult; E78.1 Pure hyperglyceridemia; E04.2 Nontoxic multinodular goiter; M85.80 Other specified disorders of bone density and structure, unspecified site
CPT/HCPCS: 76536

== ENCOUNTER 2025-01-19 13:01 | Outpatient (CLI) | payer BC, SELFPAY ==
--- NOTE | ~2025-01-19 | CT_ITS ---
EXAM/PROCEDURE: CT soft tissue neck wo con HISTORY: left side neck swelling COMPARISON: None available. TECHNIQUE: Euj-vefrpucy-qwsqcydp soft tissue neck CT performed. FINDINGS: A 1.5 times 1.2 x 1.0 cm nodule noted along the inferior margin of the left parotid gland seen on image 44 the coronal series, and image 43 of the axial images series 2. The remainder the parotid glands appear within normal limits. Scattered nonpathologic sized bilateral jugulodigastric and posterior triangle as well as occipital and sternocleidomastoid lymph nodes noted. No drainable fluid collection seen on this noncontrast series. No acute process seen in the visualized portions of the upper chest or intracranial contents. Multinodular appearance of the thyroid. Pharyngeal and retropharyngeal spaces as well as fossae of Rosenmuller appear within normal limits for technique. Diffuse degenerative changes throughout the bones. IMPRESSION: 1. 1.5 cm nodule in the inferior pole of the left parotid gland with neoplastic lesion such as Warthin's tumors not excluded. Exam is somewhat limited by noncontrast technique. 2. Multinodular appearance of the thyroid can be better evaluated with follow-up thyroid ultrasound. Reviewed, dictated and finalized at location A. TIC LABORER IMPRESSION: 1. 1.5 cm nodule in the inferior pole of the left parotid gland with neoplastic lesion such as Warthin's tumors not excluded. Exam is somewhat limited by nonc ontrast technique. 2. Multinodular appearance of the thyroid can be better evaluated with follow-u p thyroid ultrasound.
== END 2025-01-19 13:02 | disposition home or self-care (01) ==
LOC: MICIMG 13:01
PROVIDERS: PCP Family Medicine; Visit Provider Internal Medicine
DX: R22.1 Localized swelling, mass and lump, neck (principal)
CPT/HCPCS: 70490